=== PATIENT | male | born 1935 | race Caucasian/White ===

== ENCOUNTER → 2018-01-19 | Outpatient (CLI) | payer MEDICARE | LOC: NC 14:17 | PROVIDERS: ATTEND Family Medicine | DX: N39.0 Urinary tract infection, site not specified (principal) ==

== ENCOUNTER → 2018-01-20 | Outpatient (CLI) | payer MEDICARE | LOC: NC 08:32 → EDSTATUS 16:05 | PROVIDERS: ATTEND Family Medicine | DX: R79.89 Other specified abnormal findings of blood chemistry (principal); R68.89 Other general symptoms and signs; I10 Essential (primary) hypertension; E78.5 Hyperlipidemia, unspecified; R97.20 Elevated prostate specific antigen [PSA]; Z12.5 Encounter for screening for malignant neoplasm of prostate | CPT/HCPCS: 80053; 80061; 85025; G0103 ==

== ENCOUNTER → 2018-03-28 | Outpatient (CLI) | payer MEDICARE | LOC: GT 19:46 | PROVIDERS: ATTEND Family Medicine | DX: N39.0 Urinary tract infection, site not specified (principal) ==

== ENCOUNTER 2018-03-29 11:30 | Inpatient (IN) | payer MEDICARE ==
--- NOTE | 2018-03-29 11:32 | HP ---
SUPERVISING PHYSICIAN: Joaquin Mari M.D. CHIEF COMPLAINT: Right upper quadrant pain and difficulty urinating. HISTORY OF PRESENT ILLNESS: Mr. Rosario is an 82 year-old male patient of Dr. Mcelroy. He had just recently been placed into the care facility at [facility] over the weekend. He had started complaining of some difficulty urinating and was brought to the clinic by his son. The son had noted the patient has advanced dementia and is a very poor historian. I was called by Dianne and Mariola Chairez from the clinic about the patient. They had noted that the patient apparently had been treated over the weekend with Rocephin IM and [facility] an [facility] which is not clear at this point. He has had a prostate procedure a couple of years ago which the son thinks is a TURP for enlarged prostate. He started having decrease force of urine stream and some incontinence. In the clinic, urinalysis was completed that showed he had 3+ blood and some pyuria. He was also having some significant weakness and had had some unexplained weight loss of between 10 and 15 pounds over the last 2 weeks. The family had noted that the patient's appetite had decreased but he had not had any fever, coughing, nausea or vomiting. Due to the fact that the patient had ongoing weakness, Dianne Dominguez requested the patient be directly admitted for continuation of workup of possible sepsis secondary to urinary tract infection and severe dehydration. The patient initially was placed in observation. PAST MEDICAL HISTORY: 1. Carotid artery stenosis with a transient ischemic attack in 2007. 2. Hypertension. 3. Benign prostatic hypertrophy. 4. Alzheimer's disease. PAST SURGICAL HISTORY: 1. Transurethral resection of the prostate in 2016. CURRENT MEDICATIONS: 1. Flomax 0.4 mg daily. 2. Proscar 5 mg daily. 3. Ciprofloxacin 500 mg b.i.d. that was started at the clinic. ALLERGIES: NO KNOWN DRUG ALLERGIES. FAMILY HISTORY: Both mother and father are at advanced age due to natural causes. 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 He is . He has 6 children. Lives at [facility] now. He has never drank alcohol and does not use tobacco products. REVIEW OF SYSTEMS: CONSTITUTIONAL: Negative for any chills, fever, but positive for unexplained weight loss and worsening fatigue and malaise. HEENT: Negative for any headaches, nasal congestion, sore throat, ear aches. RESPIRATORY: Negative for shortness of breath, wheezing or cough or any chest congestion or hemoptysis. CARDIOVASCULAR: Negative for chest pains, palpitations, tachycardia, orthopnea or edema. GASTROINTESTINAL: Negative for abdominal pain, diarrhea, constipation. GENITOURINARY: Denies any actual dysuria, hematuria or polyuria, but notes that he does have decreased stream on urination. NEUROLOGIC: Negative for dizziness, headaches, paresthesias. Positive for increasing weakness. PHYSICAL EXAMINATION: VITAL SIGNS: Temperature 97.5, pulse 79, blood pressure 120/77, respirations 16, satting 98% on room air. Admission weight 58.3 kg. GENERAL: The patient is very lethargic, unkempt and frail, and looks dehydrated. HEENT: Tympanic membranes were clear bilaterally. Oropharynx was pink, notably dry and cracked. No lesions. NECK: Supple, non-tender. Full range of motion. CHEST: Lungs were clear to auscultation without any notable rhonchi, wheezing or rales. CARDIOVASCULAR: Regular rate and rhythm without appreciable murmurs, gallops, or rubs. ABDOMEN: Positive for right upper quadrant tenderness to palpation. No rebound tenderness. No peritoneal signs. No guarding. Bowel sounds were active. GENITOURINARY: Carrion catheter is in place with pinkish, yellowish urine. No costovertebral tenderness. NEUROLOGIC: Cranial nerves II-XII are grossly intact. Facial features are symmetrical. Extraocular movements are within normal limits. There is no notable nystagmus. He is alert and oriented to himself, his family but unsure of location and year. LYMPHATICS: No notable lymphadenopathy. INTEGUMENT: Skin is warm, dry and pink with no lesions or rashes noted. LABORATORY STUDIES: CBC showed a white count of 11,800, hemoglobin 12.1, hematocrit 37.2, platelet count 167,000. Differential did show a left shift. Chemistries showed sodium 134, normal potassium at 3.9, anion gap was low at 11.9, carbon dioxide normal at 6, BUN 55, creatinine 1.69, glucose 103, lactic acid 1.8, calcium was high at 11.2. AST and ALT are all elevated with AST of 137, ALT of 84 and alkaline phosphatase was 463. Albumin 2.8. Lipase and amylase were pending. RADIOLOGY: Abdominal ultrasound per radiology interpretation shows multiple small masses in the liver with differential consideration to include metastatic disease or multifocal hepatoma. There is note of small amount of upper abdominal ascites. There was upper abdominal adenopathy in the peripancreatic and upper hilar region. There was note of thickened wall of the gallbladder containing sludge and a prominent prostate. Common bile duct was noted to be within normal limits at 4.0 with the gallbladder showing wall thickness increased at 4.5. ASSESSMENT: 1. Possible cholecystitis with right upper quadrant pain and elevated liver functions with surgical consultation pending. 2. Urinary tract infection likely due to urinary retention with the patient having a history of benign prostatic hypertrophy. 3. Urinary retention with an enlarged prostate and a history of benign prostatic hypertrophy. 4. Moderate dehydration. 5. History of hypertension. 6. Alzheimer's disease with dementia. 7. Electrolyte imbalance to include hyponatremia. 8. Severe renal insufficiency, likely prerenal azotemia due to ongoing dehydration. 9. Hypobilirubinemia probably due to poor nutritional intake. 10. Unexplained weight loss in the last 2 weeks of 10 to 15 pounds with concerns for possible metastatic process, unknown source pending further radiographic studies and consultation with Dr. Lawrence. 11. History of transient ischemic attacks in 2007 with a history of carotid artery stenosis. 12. History of benign prostatic hypertrophy with a prostate procedure, probably a transurethral resection of the prostate, but no complete record for confirmation with some notable urinary retention but no hydronephrosis noted on recent ultrasound. PLAN: The patient is going to be admitted to the Medical/Surgical floor for treatment of dehydration, urinary tract infection and further evaluation of the findings of the liver and gallbladder. Given that he does have a leukocytosis and significant pain to the right upper quadrant and concerns for cholecystitis, I talked to Dr. Lawrence re: consultation and he agrees to see the patient tomorrow and recommends we go ahead and put the patient on antibiotics to include Levaquin and Flagyl. Will treat his current urinary tract infection with the Levaquin coverage and await culture results. Will go ahead and bolus a liter of normal saline and start him on normal saline with 20 of potassium at 150, and monitor his output closely. Given his significant weakness and severe dehydration and urinary retention, a Carrion will be placed. Will go ahead and do a CT of the chest and abdomen and pelvis to further rule out any other source of the masses noted in the liver on ultrasound. He will be on DVT prophylaxis as per protocol. Will start him on a regular diet. Will anticipate length of stay to be at least 2 to 3 days. Until the patient can transition to outpatient management will continue to monitor and treat as needed. #[id number] MTDD
[2018-03-29] MEDS ORDERED: SODIUM CHLORIDE 0.9% (FLUSH) 10 ML SYG IV PRN (12:40)
[2018-03-29] MEDS ORDERED: ONDANSETRON INJ 4 MG/2 ML VIAL IV PRN (12:40)
[2018-03-29] MEDS ORDERED: ACETAMINOPHEN 325 MG TAB PO PRN (12:40)
--- NOTE | 2018-03-29 15:39 | US ---
EXAM DESCRIPTION: Abdomen,Complete sonogram CLINICAL HISTORY: RUQ pain , Elevated LFT, Urinary retention COMPARISON: CT abdomen and pelvis October 17, 2014 TECHNIQUE: Complete abdominal ultrasound FINDINGS: Visualized portions of the pancreas are unremarkable. No peripancreatic fluid. Bowel gas obscures some areas. Normal caliber of the aorta. Extensive arteriosclerotic changes of the aortic intima. Normal appearance of the inferior vena cava. Prominent lymph nodes are seen in the peripancreatic region and around the aorta and inferior vena cava and liver hilum. Patient had CT of the abdomen October 17, 2014 and no adenopathy in the upper abdomen was seen at that time. Adenopathy in this area could be related to lymphoproliferative disorder, metastatic disease, or infectious/inflammatory process of the liver. Short axis dimension measurements of these enlarged nodes ranges from 1 to 1.4 cm. Liver parenchyma is course in texture. Multiple small masses consistent with metastatic disease or macronodular cirrhosis with multifocal hepatoma could have this appearance. Masses are in the 1-2.5 similar size range. There is mild undersurface irregularity. Small amount of free fluid around the liver is consistent with ascites. Normal appearance of hepatic veins and portal vein. Gallbladder appears normal with no intraluminal stones. Gallbladder wall thickness is increased measuring 4.5 mm. This can be seen with hepatocellular disease, hypoalbuminemia, abdominal ascites, cardiac or renal disease. Some images show sludge in the gallbladder but no shadowing stones are evident. Common bile duct is normal in caliber measuring 4.0 mm. The right kidney measures 12 cm in length. Normal to mildly increased renal cortical echogenicity. The renal cortical thickness appears normal. No solid-appearing right renal mass or shadowing stone. Large right renal cyst measures 7.3 cm. This was present on the previous study October 17, 2014. There is no hydronephrosis. Spleen is normal in size. No focal splenic lesion. Small amount of free fluid around the spleen is consistent with ascites. The left kidney measures 11.3 cm in length. Mildly increased renal cortical echogenicity. The renal cortical thickness appears normal. No left renal mass, shadowing stone or cyst. There is no hydronephrosis. In the pelvis, the urinary bladder appears thick-walled and the prostate is large with invagination of the bladder base. Prostate measures 4.1 cm in transverse dimension. IMPRESSION: Multiple small masses in the liver with differential considerations including metastatic disease or multifocal hepatoma. Small amount of upper abdominal ascites. Upper abdominal adenopathy in the peripancreatic and upper hilar region. Thick-walled gallbladder containing sludge. Prominent prostate. Electronically signed by: Jatin Holley MD 03/29/2018 3:38 PM [facility]
[2018-03-29] MEDS ORDERED: SODIUM CHLORIDE 0.9% 1000ML 1,000 ML IVS ONE (16:59)
[2018-03-29] MEDS ORDERED: levoFLOXacin 500MG IV 500 MG in PREMIX BAG 1 BAG IVPB SCH (17:00)
[2018-03-29] MEDS ORDERED: metroNIDAZOLE IV PREMIX 500MG 100 ML IVPB ONE ×2 (17:49→19:47)
[2018-03-29] MEDS: metroNIDAZOLE IV PREMIX 500MG 500 MG in PREMIX BAG 1 BAG IVPB SCH (18:01)
[2018-03-29] MEDS: KCL 20 MEQ/NS 1,000 ML IVS PRN (18:14)
[2018-03-29] MEDS: IV SET AND CAP CHANGE INJ INJ SCH (18:15)
[2018-03-29] MEDS ORDERED: levoFLOXacin 500MG IV 100 ML IVPB ONE (19:48)
--- NOTE | 2018-03-29 20:14 | CT ---
EXAM DESCRIPTION: Abdoment/Pelvis w/o Contrast CLINICAL HISTORY: f/u masses seen in liver US; unexplained wt loss COMPARISON: 10/17/2014. TECHNIQUE: Contiguous axial images of the abdomen and pelvis were obtained followed by reconstruction images. This exam was performed according to our departmental dose-optimization program, which includes automated exposure control, adjustment of the mA and/or kV according to patient size and/or use of iterative reconstruction technique. FINDINGS: Lack of IV contrast limits detail but there are new innumerable low-attenuation lesions in the liver worrisome for widespread metastases. Inflammatory involvement is also possible but less likely. There is perihepatic fluid. There are bilateral small pleural effusions, right greater than left. Dependent subsegmental atelectasis involves each lung. Masslike lesion at the right side of the right kidney is likely an exophytic cyst as it is unchanged compared to 10/17/2014 CT. The heart is mildly enlarged. There is diffuse lymphadenopathy of the mesentery. This may reflect widespread metastases. [id number] amount of free fluid is seen in the abdomen and pelvis. Carrion catheter is in the urinary bladder which is collapsed. Narrowing of the rectosigmoid is likely transient as I do not see evidence of obstruction proximally. There is atherosclerosis of the aorta. There is widespread para-aortic lymphadenopathy also worrisome for neoplastic etiology. There is mild thickening of the wall of the gallbladder with small amount of pericholecystic fluid. There is enlargement of the left adrenal gland concerning for metastatic disease. Contour of the aorta is irregular but it is not aneurysmally dilated. IMPRESSION: Widespread abnormalities are most worrisome for widespread metastases with extensive involvement of the liver, with widespread lymphadenopathy involving the mesentery and para-aortic lymph nodes. 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 See additional findings above. Follow-up is recommended. Electronically signed by: Stas Adkins 03/29/2018 8:13 PM [employer]
--- NOTE | 2018-03-29 20:18 | CT ---
PROCEDURE: Chest w/o Contrast CLINICAL HISTORY: 82 years Male f/u masses seen in liver US; unexplained wt loss COMPARISON: None. TECHNIQUE: Contiguous axial images obtained through the chest without IV contrast. Reformatted images obtained. This exam was performed according to our department optimization program which includes automated exposure control, adjustment of the mA and/or kv according to patient size and/or use of iterative reconstruction technique. FINDINGS: For detail below the diaphragm please see today's CT abdomen and pelvis report. There is a large heterogeneous right thyroid lobe mass measuring 30 x 26 mm. Sonography would offer greater detail of the remaining thyroid parenchyma. There is an ascending aortic aneurysm measuring 43 mm diameter. Bilateral small pleural effusions are again seen with dependent bilateral subsegmental atelectasis. There are mildly enlarged mediastinal lymph nodes. Mildly enlarged axillary lymph nodes are also seen bilaterally. Heart is mildly enlarged. Widespread marrow heterogeneity is nonspecific but neoplastic involvement is not excluded. No large consolidations are seen. No definite pulmonary metastases. IMPRESSION: Skeletal findings are concerning for metastases. No significant consolidations or definite pulmonary masses. Mildly enlarged lymph nodes. Bilateral pleural effusions. Cardiomegaly and ascending aortic aneurysm. Electronically signed by: Stas Adkins 03/29/2018 8:16 PM [employer] WORK[employer]
[2018-03-30] MEDS: metroNIDAZOLE IV PREMIX 500MG 500 MG in PREMIX BAG 1 BAG IVPB SCH ×3 (00:43→17:37)
[2018-03-30] MEDS ORDERED: KCL 20MEQ/0.45% NS 0 ML IVS ONE (00:48)
[2018-03-30] MEDS: KCL 20 MEQ/NS 1,000 ML IVS PRN ×2 (00:52→09:16)
[2018-03-30] MEDS ORDERED: metroNIDAZOLE IV PREMIX 500MG 100 ML IVPB ONE ×3 (08:20→19:19)
[2018-03-30] MEDS ORDERED: ENOXAPARIN SODIUM 40 MG/0.4 ML SYG SUBCU SCH (09:00)
--- NOTE | 2018-03-30 10:15 | CONS ---
DATE OF CONSULTATIONS 03/30/18 REFERRING PHYSICIAN: Hospitalist service, Frederick Ang and Joaquin Mari MD HISTORY OF PRESENT ILLNESS: The patient is an 82-year-old male who was admitted directly from the clinic yesterday with urinary retention. When he was examined here in the hospital, he was found to have tenderness in the right upper quadrant and a workup was begun. He denies history of fever or chills. He denies history of nausea. He denies history of change in his bowel habits. PAST MEDICAL HISTORY: 1. Carotid artery stenosis with transient ischemic attack in 2007. 2. Hypertension. 3. Benign prostatic hypertrophy. 4. Alzheimer's disease. PAST SURGICAL HISTORY: 1. He is believed to have had a transurethral resection of the prostate in 2016. CURRENT MEDICATIONS: 1. Flomax. 2. Proscar. 3. Cipro, which he was started on in the clinic. ALLERGIES: NO KNOWN DRUG ALLERGIES. FAMILY HISTORY: Unremarkable. 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 He is . He has six children. He never drank, does not use alcohol. REVIEW OF SYSTEMS: He specifically denies shortness of breath, chest pain, edema. He denies problems with swallowing or change in his bowel habits. PHYSICAL EXAMINATION: GENERAL: The patient is awake, alert, cooperative and appears somewhat cachetic. VITAL SIGNS: The patient is currently afebrile, normotensive. HEENT: Sclerae nonicteric. Mucous membranes moist. NECK: Without significant adenopathy. There is a thyroid mass palpable on the right side. CHEST: Equal breath sounds bilaterally. HEART: Regular rhythm. ABDOMEN: Soft, nondistended. There is tenderness in the right upper quadrant with some guarding. There is no referred tenderness. There is mild suprapubic tenderness. RECTAL: Deferred. EXTREMITIES: Without cyanosis, clubbing or edema. LABORATORY: Upon admission, white count was 11,000. White count today is 9.8. Hemoglobin was 12.1 and now 10.9. Platelet count 158 today, 81% neutrophils, essentially the same as yesterday. Chemistries revealed potassium 3.9 yesterday, 4.3 today. Creatinine is down from 1.69 to 1.34. Calcium is down from 11.2 to 10.3. Liver functions showed total bilirubin 2.3 yesterday and is 1.9 today. AST and ALT are both decreased, but still elevated, as is the alkaline phosphatase. LDH is elevated. Amylase and lipase within normal limits. PSA is 0.98. CT scan of the chest reveals a thyroid mass, 3 cm, bilateral pleural effusions and some mediastinal lymphadenopathy. CT scan of the abdomen reveals narrowing in the sigmoid colon, multiple mesenteric and periaortic lymph nodes that are enlarged, multiple small liver masses, some ascites mainly around the liver and a possible thickened gallbladder wall. The ultrasound reveals sludge with no stones and a normal duct. 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 GI is certainly likely although prostate and even thyroid are possibility. RECOMMENDATION: We will recommend obtaining urologic and GI consultation for possible upper and lower GI scopes tomorrow and also recommend ultrasound of the thyroid to more appropriately identify the right thyroid lesion. Would continue the antibiotics as he does also seem to have at least some acute cholecystitis either with or without cholelithiasis. #[id number] MTDD
[2018-03-30] MEDS: LOSARTAN POTASSIUM 25 MG TAB PO SCH (12:41)
[2018-03-30] MEDS: FINASTERIDE 5 MG TAB PO SCH (12:41)
[2018-03-30] MEDS: TAMSULOSIN 0.4 MG CAP PO SCH (12:41)
--- NOTE | 2018-03-30 12:48 | CT ---
EXAM DESCRIPTION: CT ABDOMEN AND PELVIS WITH CONTRAST CLINICAL HISTORY: f/u on CT w/o contrast 03/29/18 COMPARISON: March 29, 2018 TECHNIQUE: CT of the abdomen and pelvis are performed during IV bolus administration of IV contrast. FINDINGS: Small bilateral pleural effusions. Extensive hepatic metastatic disease with innumerable and confluent hypoenhancing lesions throughout the liver. The largest single lesion is an anterior segment right lobe measures 4.2 cm. Left adrenal lesion 1.7 cm. Retroperitoneal and mesenteric lymphadenopathy as described on the noncontrast study. The largest node is left periaortic mid abdomen 3.8 x 3.3 cm. Small volume ascites is present. Lytic bone lesions T10, T11. Careful evaluation of the bowel shows what I believe to be colon cancer in the proximal right colon/cecum best seen on axial images 47 through 51. 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 Believe this is secondary to colon cancer right colon. This exam was performed according to our departmental dose-optimization program, which includes automated exposure control, adjustment of the mA and/or kV according to patient size and/or use of iterative reconstruction technique. Electronically signed by: Jeremy Anthony MD 03/30/2018 12:47 PM [employer]
--- NOTE | 2018-03-30 13:50 | US ---
US THYROID CLINICAL STATEMENT: F/u right thyroid mass seen on CT 03/29/18.. Palpable bilaterally. No history of thyroid surgery or previous thyroid therapy. COMPARISON: CT scan of the chest 03/29/2018. FINDINGS: Size right thyroid lobe: 5.1 x 2.5 x 2.3 cm Size left thyroid lobe: 3.9 x 1.8 x 1.4 cm Size isthmus: 0.3 cm Estimated total number of nodules greater than or equal to 1 cm: 1. Heterogeneous left thyroid lobe with no dominant solid mass or cyst. No parenchymal edema or large calcifications. No abnormal vascularity. Nodule 1: Size: 3.2 x 2.8 x 1.8 cm Location: Right Mid Composition: solid or almost completely solid: 2 points Echogenicity: hypoechoic: 2 points Shape: wider than tall: 0 points Margins: lobulated/irregular: 2 points Echogenic foci: macrocalcifications: 1 point ACR Total Points: >/= 7; ACR TI-RADS risk category: TR5 - highly suspicious nodule. In the left lateral neck is a hypoechoic mass with smooth lobulated margins measuring 3.1 x 1.9 x1.9 cm. Minimal vascularity. Parallel orientation. Posterior enhancement features. A second mass with similar appearance measures 3.4 x 1.7 cm. Minimal vascularity on the periphery. More heterogeneity in this mass. Other smaller masses were not measured. No distinct cyst. No parenchymal edema or large calcifications. No overlying skin changes. IMPRESSION: 1. Nodule 1: ACR TI-RADS 2017 Category TR5. Recommend: Ultrasound-guided fine needle aspiration. Recommendations based upon [employer] Best [employer] recommendations and ACR TI-RADS 2017 guidelines. Please see below*. 2. At least 2 large hypoechoic masses in the soft tissues lateral to the left thyroid lobe which may represent lymphadenopathy. No parenchymal edema or cysts. No large calcifications. *ACR TI-RADS 2017 Recommendations: TR1: No FNA or follow up TR2: No FNA or follow up TR3: FNA if >/= 2.5 cm, follow up if 1.5 - 2.4 cm in 1, 3, and 5 years TR4: FNA if >/= 1.5 cm, follow up if 1.0 - 1.4 cm in 1, 2, 3, and 5 years TR5: FNA if >/= 1.0 cm, follow up if 0.5 - 0.9 cm every year for 5 years ACR TI-RADS recommends that no more than two nodules with the highest ACR TI-RADS total point should be biopsied and no more than four nodules should be followed. Electronically signed by: Stas Mays MD 03/30/2018 1:48 PM [facility]
[2018-03-30] MEDS ORDERED: PEG-ELECTROLYTE 4,000 ML BTTL PO ONE (16:02)
[2018-03-30] MEDS ORDERED: levoFLOXacin 250MG IV 50 ML IVPB ONE (16:10)
[2018-03-30] MEDS: levoFLOXacin 250MG IV 250 MG in PREMIX BAG 1 BAG IVPB SCH (16:35)
[2018-03-30] MEDS ORDERED: MORPHINE SULFATE INJ 10 MG/ML VIAL ONE (19:21)
[2018-03-30] MEDS: HYDROmorphone HCL INJ 2 MG/ML VIAL IV PRN (19:40)
[2018-03-30] MEDS: DONEPEZIL HCL 5 MG TAB PO SCH (20:02)
[2018-03-31] MEDS: metroNIDAZOLE IV PREMIX 500MG 500 MG in PREMIX BAG 1 BAG IVPB SCH ×3 (01:03→18:37)
[2018-03-31] MEDS: KCL 20 MEQ/NS 1,000 ML IVS PRN ×2 (01:03→18:41)
[2018-03-31] MEDS: HYDROmorphone HCL INJ 2 MG/ML VIAL IV PRN ×2 (06:04→18:38)
[2018-03-31] MEDS: ASPIRIN (ENTERIC COATED) 81 MG TAB PO SCH (08:02)
[2018-03-31] MEDS ORDERED: metroNIDAZOLE IV PREMIX 500MG 100 ML IVPB ONE ×3 (08:03→19:34)
[2018-03-31] MEDS: LOSARTAN POTASSIUM 25 MG TAB PO SCH (08:05)
--- NOTE | 2018-03-31 08:25 | PN ---
DATE: 03/30/18 SUPERVISING PHYSICIAN: Joaquin Mari MD SUBJECTIVE: The patient continues to have some pain in his left upper quadrant which is really noticeable when he rolls to the right side, however, laying flat he seems to be very comfortable, not having any complaints of any shortness of breath, nausea or vomiting or any diarrhea. I did talk at length with family, his daughter and [id number], in regards to the CT findings that were done yesterday and today and our request to have Dr. Cisneros do a colonoscopy given the findings of a possible cancer as noted on CT. The family is very agreeable to this and is working to secure consent to proceed forward. OBJECTIVE: VITAL SIGNS: Temperature 98, pulse 92, blood pressure 138/84, respirations 20, saturation 95% on room air. I&O: Positive balance of 615 with 2215 in and 1600 out. He has had one bowel movement with positive occult blood. Weight is 59.1 kg. GENERAL: The patient is alert, seems to be very comfortable and is somewhat esthetic and does winch with any movement but otherwise seems to be fairly comfortable and in no distress. CHEST: Lung sounds remain clear bilaterally. HEART: regular rate and rhythm. ABDOMEN: Soft, nondistended with notable tenderness continues throughout the right upper quadrant with some guarding. Bowel sounds are active. EXTREMITIES: Without any cyanosis, clubbing, or edema. NEUROLOGICAL: He is alert and oriented x2 to himself, family members and current location but otherwise he does not know the year but is very easily oriented and according to family members is at his near baseline mental status. LABORATORY: White count now has normalized to 9,800, hemoglobin 10.9, hematocrit 33.1. Platelet count 158,000, differential does continue to show a left shift. Chemistries show a sodium of 134, normal potassium at 4.3, anion gap 11, carbon dioxide 21. BUN is 46 which is improved from 54 on admission and his creatinine has improved up to 1.34. Calcium is down to 10.3, glucose 90. Liver functions are showing improvement with bilirubin now at 1.9, direct was 1.1 with indirect being 0.8. AST is down to 102, ALT at 65, alkaline phosphatase is down slightly to 401, alkaline phosphatase isoenzymes are pending. He had an LDH that was elevated at 334. Albumin is at 2.3, protein at 5.9. Amylase and lipase yesterday were normal. PSA was 0.98, TSH normal at 4.40. He had one stool occult blood that was positive. RADIOLOGY: Thyroid ultrasound and per Dr. Mays, there was note of a heterogenous left thyroid lobe with no dominant solid masses. Nodule 1 Size at 3.1 x 2.8 x 1.8 cm. Location: right mid composition was solid. Was hyperechoic and moderate and tall and lobulated to be irregular with microcalcifications. Please see that report for full details. 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 ASSESSMENT: 1. Probably metastatic malignancy, uncertain etiology, although CT is suggestive of possible colon cancer on the right[facility] consultation pending and colonoscopy scheduled for in the morning. 2. Right upper quadrant pain with elevated liver functions and multiple nodules noted of uncertain etiology. 3. Urinary tract infection secondary to urinary retention with the patient requiring Carrion placement with patient having a history of benign prostatic hypertrophy and having a noted enlarged prostate on CT scan. 4. Urinary retention with an enlarged prostate and a history of benign prostatic hypertrophy and a recent TURP within the last 2 years done in [place]. Family is unsure who the urologist was. 5. Moderate dehydration improving with fluids. 6. History of hypertension. 7. Alzheimer's disease with dementia. 8. Persistent hyponatremia showing to be stable. 9. Acute kidney injury, likely prerenal azotemia due to ongoing dehydration improving with IV fluids. 10. Hypobilirubinemia probably due to poor nutritional intake. 11. Unexplained weight loss in the last 2 weeks of 10 to 15 pounds probably due to metastatic process pending further consultations with GI and urology and continued surgical consultation. 12. History of transient ischemic attacks in 2007 with a history of carotid artery stenosis. PLAN: Consultations have been secured with both GI with Dr. Cisneros and Urology with Dr. Wagner on Thursday. He will have a colonoscopy performed by Dr. Cisneros tomorrow, consents have been signed and he will be prepped tonight per Dr. Cisneros's instructions and request. Will continue with fluids and antibiotics pending further consultation. Will await urine culture to further target antibiotic therapy and will await findings from colonoscopy to further determine plan of care. Certainly anticipate with current findings and probably findings tomorrow, that the patient will need to be referred to Oncology and at some point be placed on hospice. I have discussed with the family at length and they are very understanding of this and very appreciative of the efforts to get answers as to his source of the metastases and understand that the prognosis of the patient is very grim at this point. Until we can transition the patient back to [facility], will continue to monitor and treat as needed. #[id number] [facility]
[2018-03-31] MEDS: FINASTERIDE 5 MG TAB PO SCH (11:08)
[2018-03-31] MEDS: TAMSULOSIN 0.4 MG CAP PO SCH (11:08)
[2018-03-31] MEDS ORDERED: ELECTROLYTE-A 1,000 ML IVS ONE (11:16)
--- NOTE | 2018-03-31 11:51 | CONS ---
DATE OF CONSULTATION: 03/31/18 REFERRING PHYSICIAN: Frederick Ang NP, under the supervision of Joaquin Mari MD REASON FOR CONSULTATION: Abnormal imaging of the GI tract. HISTORY OF PRESENT ILLNESS: Mr. Rosario is an 82-year-old gentleman with a history of advanced Alzheimer's disease, carotid stenosis and hypertension who was admitted with urinary difficulties and urinary retention. On physical examination, he had some right upper quadrant tenderness. A CT can was performed which showed diffuse metastatic disease with bone metastasis and hepatic and nancy metastasis as well. There was also thickening in the right colon which was highly concerning for a colon malignancy. The patient has advanced dementia and is unable to provide a history. PAST MEDICAL HISTORY: 1. Carotid artery stenosis with transient ischemic attack in 2007. 2. Hypertension. 3. Benign prostatic hypertrophy. 4. Alzheimer's disease. PAST SURGICAL HISTORY: 1. Transurethral resection of the prostate in 2015. CURRENT MEDICATIONS: 1. Flomax. 2. Proscar. 3. Cipro. 4. Flagyl. ALLERGIES: NO KNOWN DRUG ALLERGIES. FAMILY HISTORY: No relevant GI disease. 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 He has no history of alcohol use and was a lifelong nonsmoker. REVIEW OF SYSTEMS: Unable to be performed due to the patient's mental status. PHYSICAL EXAMINATION: VITAL SIGNS: Temperature 97.5. Pulse 79. Blood pressure 120/77. Saturation 98% on room air. GENERAL: The patient appears lethargic and is very sleepy. HEENT: Anicteric. Mucous membranes are moist. CHEST: Clear to auscultation bilaterally. HEART: Regular rate and rhythm. ABDOMEN: Mild right upper quadrant tenderness, no rebound. EXTREMITIES: No lower extremity edema. LABORATORY: White blood cell count 11,000, currently 9.8. Hemoglobin 10.2, platelet count 158. Creatinine 1.3, bilirubin 1.9. ASSESSMENT: This is an 82-year-old gentleman with advanced Alzheimer's disease presenting for evaluation of abnormal imaging of the GI tract with also intraabdominal findings suggestive of possible metastatic colon cancer. PLAN: He has undergone colon preparation with GoLYTELY last night and this morning, we shall attempt a colonoscopy in order to identify any lesions in the right colon. #[id number] [facility]
--- NOTE | 2018-03-31 11:56 | OP ---
DATE OF PROCEDURE: 03/31/18 PREPROCEDURE DIAGNOSIS: 1. Abnormal imaging of the gastrointestinal tract suggesting a right colon malignancy. POSTPROCEDURE DIAGNOSIS: 1. Cecal mass. 2. Diverticulosis. PROCEDURE: 1. Colonoscopy with biopsy. SURGEON: Royal Cisneros MD. SEDATION: Monitored anesthesia care. ESTIMATED BLOOD LOSS: Less than 5 mL. PROCEDURE: Informed consent was obtained prior to sedation. The preprocedure cardiopulmonary assessment was satisfactory. The patient was brought to the Endoscopy Suite and placed in the left lateral decubitus position. The patient was then sedated by the anesthesia team. Digital rectal exam revealed a large, firm prostate. Perianal exam was normal. The tip of the Olympus colonoscope was inserted into the rectum and advanced under direct visualization to the cecum as identified by the presence of the appendiceal orifice and ileocecal valve. Preparation of the colon was adequate. Upon reaching the cecum, the endoscope was slowly withdrawn. In the cecum, near the ileocecal valve, there was a fairly large, roughly 5 cm, firm mass that had a malignant gross appearance. Biopsies were taken extensively with cold forceps for histology. The endoscopy was withdrawn to the sigmoid colon where there was some scattered diverticulosis. The endoscope was then withdrawn from the patient and the procedure terminated. RECOMMENDATION: 1. Return the patient to hospital josue. 2. Resume previous diet. 3. Continue present medications. 4. Followup pathology results. #[id number] [facility]TDD
[2018-03-31] MEDS ORDERED: levoFLOXacin 250MG IV 50 ML IVPB ONE (18:34)
[2018-03-31] MEDS: levoFLOXacin 250MG IV 250 MG in PREMIX BAG 1 BAG IVPB SCH (18:37)
[2018-03-31] MEDS: DONEPEZIL HCL 5 MG TAB PO SCH (20:39)
[2018-04-01] MEDS: metroNIDAZOLE IV PREMIX 500MG 500 MG in PREMIX BAG 1 BAG IVPB SCH ×3 (00:21→17:07)
[2018-04-01] MEDS: HYDROmorphone HCL INJ 2 MG/ML VIAL IV PRN (01:17)
[2018-04-01] MEDS: KCL 20 MEQ/NS 1,000 ML IVS PRN ×3 (04:33→22:29)
[2018-04-01] MEDS ORDERED: metroNIDAZOLE IV PREMIX 500MG 100 ML IVPB ONE ×2 (07:33→15:09)
--- NOTE | 2018-04-01 08:05 | CONS ---
DATE OF CONSULTATION: 03/31/18 HISTORY OF PRESENT ILLNESS: Mr. Rosario is an 82-year-old gentleman who was admitted to the hospital with declining health and generalized malaise. On admission to the hospital, he had some abdominal pain. He was catheterized and found to have 1 liter of urine in his bladder. Since then, he has undergone evaluation and was found to have metastatic tumor apparently from his colon. It looks like it is colon cancer with metastasis extensively to his liver. He also has extensive abdominal adenopathy. The patient has been followed in the past by Dr. Hernandez and as I understand he has had a previous resection of his prostate by Dr. Hernandez. PHYSICAL EXAMINATION: GENERAL: The patient's examination suggests a frail, elderly gentleman who is fairly lethargic, but does arouse. He seems appropriate. CHEST: He has normal respirations. ABDOMEN: Basically benign without distention or tenderness. The patient has an indwelling Carrion catheter draining clear to slightly bilious urine. He has uncircumcised phallus. No real edema noted. IMPRESSION: 1. Urinary retention. 2. Metastatic malignancy of the abdomen, presumed to be colon cancer. It appears to be fairly endstage at this point in time even with bony metastasis. RECOMMENDATION: I think the patient would be best served by leaving indwelling Carrion catheter at this time. One would think that hospice care would be warranted. If the patient's health does improve with treatment, though, one might consider a voiding trial a little later. I would wait until the patient is ambulatory before I would consider a voiding trial. Thank you allowing me to participate in his care. [facility][id number] [facility]
[2018-04-01] MEDS: LOSARTAN POTASSIUM 25 MG TAB PO SCH (08:20)
[2018-04-01] MEDS: FINASTERIDE 5 MG TAB PO SCH (08:20)
[2018-04-01] MEDS: TAMSULOSIN 0.4 MG CAP PO SCH (08:20)
--- NOTE | 2018-04-01 08:35 | PN ---
SUPERVISING PHYSICIAN: Joaquin Mari MD DATE: 03/31/18 SUBJECTIVE: The patient is lying in bed. His family is at his bedside. Dr. Lawrence discussed with the patient at length his poor prognosis as well as the finding on his colonoscopy. The patient stated he does feel better today than he has. He has had no nausea or vomiting. The plan was to await his biopsy results before making any decisions on his discharge plan. We would also watch the patient clinically as long as his appetite is okay and he is improving. OBJECTIVE: VITAL SIGNS: Temperature 97.6. Heart rate 98. Blood pressure 154/91. Respiratory rate 20. O2 saturation 94% on 2 liters nasal cannula. RESPIRATORY: Essentially clear to auscultation bilaterally. CARDIAC: Regular rate and rhythm. GASTROINTESTINAL: Abdomen is soft, diffusely tender, but more notable tenderness to the right upper quadrant. He does have some guarding. There is no rebound tenderness. EXTREMITIES: No cyanosis, clubbing or edema. NEUROLOGIC: Awake and oriented times two to person and place. LABORATORY: WBCs 7,100, hemoglobin 11, hematocrit 33.7. He has a normal differential. Electrolytes are basically within normal limits. Total bilirubin has gone up slightly to 2.1 with an AST of 82, alkaline phosphatase 445, serum total protein 5.8, albumin 2.2, globulin 3.9. All other labs and films have been reviewed via the EMR. Medical consultation notes from [place] show the patient to have a 5 cm mass at the cecum, possibly metastatic colon cancer and biopsies were obtained. ASSESSMENT: 1. Probably metastatic malignancy, uncertain etiology, although CT is suggestive of possible colon cancer on the right with GI consultation per Dr. Cisneros. Dr. Cisneros performed a colonoscopy today. He found an approximately 5 cm mass at the cecum which was biopsied and had a malignant gross appearance. 2. Right upper quadrant pain with elevated liver functions and multiple nodules noted of uncertain etiology. 3. Urinary tract infection secondary to urinary retention with the patient requiring Carrion placement with patient having a history of benign prostatic hypertrophy and having a noted enlarged prostate on CT scan. 4. Urinary retention with an enlarged prostate and a history of benign prostatic hypertrophy and a recent transurethral resection of the prostate within the last 2 years done in [place]. Family is unsure who the urologist was. 5. Moderate dehydration improving with fluids. 6. History of hypertension. 7. Alzheimer's disease with dementia. 8. Persistent hyponatremia, stable. 9. Acute kidney injury, likely prerenal azotemia due to ongoing dehydration, improving with IV fluids. 10. Hypobilirubinemia probably due to poor nutritional intake. 11. Unexplained weight loss in the last 2 weeks of 10 to 15 pounds probably due to metastatic process pending further consultations with GI and urology and continued surgical consultation. 12. History of transient ischemic attacks in 2007 with a history of carotid artery stenosis. PLAN: We will continue present supportive care. We will await the biopsies performed by Dr. Cisneros, GI specialist. Dr. Wagner also saw the patient in consultation and felt it would be best to leave the Carrion catheter at this time. Dr. Lawrence spoke to the family at length about hospice as well as possibilities of treatment. At this point, we will await the biopsy report, but this was a very poor prognosis and it may be beneficial for him to have hospice care. Dr. Lawrence is concerned that he may have to have his gallbladder removed just for patient comfort measures, but we will follow the biopsy reports and treat as appropriate. Dr. Lawrence has requested that we order CMP in the morning. We will continue to monitor the patient closely and follow as needed. [facility][id number] [facility]
[2018-04-01] MEDS: IV SET AND CAP CHANGE INJ INJ SCH (12:42)
[2018-04-01] MEDS ORDERED: levoFLOXacin 250MG IV 50 ML IVPB ONE (15:08)
[2018-04-01] MEDS: levoFLOXacin 250MG IV 250 MG in PREMIX BAG 1 BAG IVPB SCH (15:18)
--- NOTE | 2018-04-01 17:06 | PN ---
DATE: 04/01/18 SUPERVISING PHYSICIAN: Joaquin Mari MD SUBJECTIVE: The patient is lying in bed. He is very quiet. He has a difficult time answering questions but he can answer some simple, yes/no questions appropriately. He denies chest pain, nausea or increased abdominal pain. OBJECTIVE: VITAL SIGNS: Temperature T-max 24 hours is 99.7 axillary. Heart rate 97. Blood pressure 143/83 Respiratory rate 18. O2 saturation 93% on room air. RESPIRATORY: Somewhat diminished throughout but otherwise clear to auscultation. CARDIAC: Regular rate and rhythm. GASTROINTESTINAL: Abdomen is soft, slightly tender especially in the right upper quadrant. There is some grimacing with palpation. Bowel sounds are positive. EXTREMITIES: No cyanosis, clubbing or edema. NEUROLOGIC: Awake and alert. . LABORATORY: Electrolytes are basically within normal limits with the exception his carbon dioxide is slightly low at 20 and his bilirubin has improved to 1.9 with AST of 80, alkaline phosphatase 272. CEA is pending. All other labs and films have been reviewed via the EMR. ASSESSMENT: 1. Probably metastatic malignancy, uncertain etiology, although CT is suggestive of possible colon cancer on the right with GI consultation per Dr. Cisneros. Dr. Cisneros performed a colonoscopy today. He found an approximately 5 cm mass at the cecum which was biopsied and had a malignant gross appearance. 2. Right upper quadrant pain with elevated liver functions and multiple nodules noted of uncertain etiology. 3. Urinary tract infection secondary to urinary retention with the patient requiring Carrion placement with patient having a history of benign prostatic hypertrophy and having a noted enlarged prostate on CT scan. 4. Urinary retention with an enlarged prostate and a history of benign prostatic hypertrophy and a recent transurethral resection of the prostate within the last 2 years done in [place]. Family is unsure who the urologist was. 5. Moderate dehydration improving with fluids. 6. History of hypertension. 7. Alzheimer's disease with dementia. 8. Persistent hyponatremia, stable. 9. Acute kidney injury, likely prerenal azotemia due to ongoing dehydration, improving with IV fluids. 10. Hypobilirubinemia probably due to poor nutritional intake. 11. Unexplained weight loss in the last 2 weeks of 10 to 15 pounds probably due to metastatic process pending further consultations with GI and urology and continued surgical consultation. 12. History of transient ischemic attacks in 2007 with a history of carotid artery stenosis. PLAN: We will continue present supportive care. His grandson calls and he is waiting to come in to sign a Do Not Resuscitate. At this point we are awaiting the biopsy results from the colonoscopy and Dr. Lawrence has been in touch with Dr. Horn, the pathologist about those results. If the patient continues to improve on his antibiotics and has no further problems with his abdominal pain, most likely the family will send him to one of the local [facility] with [facility]. Until those results are available we will continue to monitor him closely. He does have a Carrion catheter and we will continue that as recommended by Dr. Wagner, urologist. I have ordered a CBC tomorrow and we will continue to monitor closely and follow as needed. Dr. Mari is the collaborating physician available for consultation. [facility][id number] [facility]
[2018-04-01] MEDS: DONEPEZIL HCL 5 MG TAB PO SCH (21:10)
[2018-04-02] MEDS ORDERED: metroNIDAZOLE IV PREMIX 500MG 100 ML IVPB ONE ×4 (00:31→19:49)
[2018-04-02] MEDS: metroNIDAZOLE IV PREMIX 500MG 500 MG in PREMIX BAG 1 BAG IVPB SCH ×3 (00:34→17:45)
[2018-04-02] MEDS: KCL 20 MEQ/NS 1,000 ML IVS PRN ×3 (06:24→23:42)
[2018-04-02] MEDS ORDERED: ASPIRIN (ENTERIC COATED) 81 MG TAB PO ONE (06:51)
[2018-04-02] MEDS: FINASTERIDE 5 MG TAB PO SCH (08:14)
[2018-04-02] MEDS: TAMSULOSIN 0.4 MG CAP PO SCH (08:14)
[2018-04-02] MEDS: LOSARTAN POTASSIUM 25 MG TAB PO SCH (08:14)
[2018-04-02] MEDS: ASPIRIN (ENTERIC COATED) 81 MG TAB PO SCH (08:14)
[2018-04-02] MEDS: HYDROmorphone HCL INJ 2 MG/ML VIAL IV PRN (10:07)
[2018-04-02] MEDS ORDERED: PROPOFOL 200 MG/20 ML VIAL IV ONE (13:26)
[2018-04-02] MEDS ORDERED: LIDOCAINE 1% 10 ML VIAL INJ ONE (13:26)
[2018-04-02] MEDS ORDERED: SODIUM CHLORIDE 0.9% 50 ML VIAL ONE (13:26)
[2018-04-02] MEDS ORDERED: levoFLOXacin 250MG IV 50 ML IVPB ONE (16:03)
[2018-04-02] MEDS: levoFLOXacin 250MG IV 250 MG in PREMIX BAG 1 BAG IVPB SCH (16:05)
[2018-04-02] MEDS: DONEPEZIL HCL 5 MG TAB PO SCH (20:48)
[2018-04-03] MEDS: metroNIDAZOLE IV PREMIX 500MG 500 MG in PREMIX BAG 1 BAG IVPB SCH ×3 (00:37→17:37)
[2018-04-03] MEDS: HYDROmorphone HCL INJ 2 MG/ML VIAL IV PRN ×3 (03:53→23:19)
[2018-04-03] MEDS: KCL 20 MEQ/NS 1,000 ML IVS PRN (07:48)
[2018-04-03] MEDS ORDERED: metroNIDAZOLE IV PREMIX 500MG 100 ML IVPB ONE ×3 (08:07→19:57)
[2018-04-03] MEDS ORDERED: ASPIRIN (ENTERIC COATED) 81 MG TAB PO ONE (08:07)
[2018-04-03] MEDS: FINASTERIDE 5 MG TAB PO SCH (08:54)
[2018-04-03] MEDS: TAMSULOSIN 0.4 MG CAP PO SCH (08:54)
[2018-04-03] MEDS: LOSARTAN POTASSIUM 25 MG TAB PO SCH (08:54)
[2018-04-03] MEDS: ASPIRIN (ENTERIC COATED) 81 MG TAB PO SCH (08:54)
--- NOTE | 2018-04-03 10:13 | PN ---
DATE: 04/02/18 SUPERVISING PHYSICIAN: Bebeto Bowman MD SUBJECTIVE: The patient is lying quietly in bed. He has no complaints of pain. His family is at the bedside and Dr. Lawrence spoke with them at length about hospice care as well as his prognosis and treatment. The patient's family want him to be as comfortable as possible and do what we need and at some point they will utilize [facility]. Otherwise, the nurses report no changes or problems with Mr. Rosario. OBJECTIVE: VITAL SIGNS: Temperature is 98.1. Heart rate 97. Blood pressure 125/78. Respiratory rate 18. O2 saturation 92% on room air. RESPIRATORY: Diminished at the basis, otherwise clear to auscultation. CARDIAC: Regular rate and rhythm. GASTROINTESTINAL: Abdomen is soft, mildly tender in the right upper quadrant area but there is no guarding or rebound tenderness and it has improved since yesterday. NEUROLOGIC: Awake and alert. .He is somewhat confused. He answers a few simple yes/no questions. LABORATORY: WBC 10.5 with hemoglobin 11.6 and hematocrit 35.3. He does have a left shift on differential at 84.6%. Electrolytes are basically within normal limits, his creatinine remains stable at 1.18. BUN is slightly elevated at 34. Bilirubin is 2.6 with AST of 83, alkaline phosphatase 392. Serum total protein low at 5.3, albumin 2.0. CEA is 2.1. All other labs and films have been reviewed via the EMR. ASSESSMENT: 1. Probably metastatic malignancy, uncertain etiology, although CT is suggestive of possible colon cancer on the right with GI consultation per Dr. Cisneros. Dr. Cisneros performed a colonoscopy today. He found an approximately 5 cm mass at the cecum which was biopsied and had a malignant gross appearance. 2. Right upper quadrant pain with elevated liver functions and multiple nodules noted of uncertain etiology. 3. Urinary tract infection secondary to urinary retention with the patient requiring Carrion placement with patient having a history of benign prostatic hypertrophy and having a noted enlarged prostate on CT scan. 4. Urinary retention with an enlarged prostate and a history of benign prostatic hypertrophy and a recent transurethral resection of the prostate within the last 2 years done in [place]. Family is unsure who the urologist was. 5. Moderate dehydration improving with fluids. 6. History of hypertension. 7. Alzheimer's disease with dementia. 8. Persistent hyponatremia, stable. 9. Acute kidney injury, likely prerenal azotemia due to ongoing dehydration, improving with IV fluids. 10. Hypobilirubinemia probably due to poor nutritional intake. 11. Unexplained weight loss in the last 2 weeks of 10 to 15 pounds probably due to metastatic process pending further consultations with GI and urology and continued surgical consultation. 12. History of transient ischemic attacks in 2007 with a history of carotid artery stenosis. PLAN: We will continue present supportive care. We will follow the recommendations of , general surgeon, in regard to his gallbladder. Dr. Lawrence would like to monitor him closely over the next few days. At some point we will call in [facility]. The patient is a Do Not Resuscitate. We will continue present supportive care including his antibiotics. I will order lab for in the morning. If his temperature is either equal to or more than 100.5, he is to get blood cultures or call me. Otherwise we will continue to monitor him closely and follow as needed.. #[id number] [facility]
[2018-04-03] MEDS ORDERED: MAGNESIUM SULFATE PREMIX 2GM 2 GM in PREMIX BAG 1 BAG IVPB ONE (11:24)
[2018-04-03] MEDS ORDERED: FUROSEMIDE INJ 40 MG/4 ML VIAL IV ONE (11:45)
[2018-04-03] MEDS ORDERED: MAGNESIUM SULFATE PREMIX 2GM 50 ML IVPB ONE (13:10)
[2018-04-03] MEDS: DEX 5% W/NACL 0.22% 1000ML 1,000 ML IVS PRN (13:15)
--- NOTE | 2018-04-03 13:44 | RAD ---
EXAM DESCRIPTION: Chest,1 View CLINICAL HISTORY: SOB COMPARISON: None. FINDINGS: Cardiac silhouette is within normal limits. There is atelectasis at each lung base with consolidation at the right lung base. IMPRESSION: Right lung base consolidation. Electronically signed by: Stas Adkins 04/03/2018 1:43 PM [facility]
[2018-04-03] MEDS ORDERED: levoFLOXacin 250MG IV 50 ML IVPB ONE (16:13)
[2018-04-03] MEDS: levoFLOXacin 250MG IV 250 MG in PREMIX BAG 1 BAG IVPB SCH (16:16)
[2018-04-03] MEDS: DONEPEZIL HCL 5 MG TAB PO SCH (20:41)
[2018-04-04] MEDS: metroNIDAZOLE IV PREMIX 500MG 500 MG in PREMIX BAG 1 BAG IVPB SCH ×3 (01:02→16:25)
[2018-04-04] MEDS: DEX 5% W/NACL 0.22% 1000ML 1,000 ML IVS PRN ×2 (02:45→18:22)
--- NOTE | 2018-04-04 07:42 | RAD ---
EXAM: Single view chest. INDICATION: Right lower lobe pneumonia. COMPARISON: Chest x-ray: 04/03/2018. FINDINGS: Again noted is a right lower lobe airspace opacity with probable right pleural effusion. The heart size is stable. There is no pneumothorax. The bones are unchanged. IMPRESSION: No significant change compared to the prior exam. Grossly stable right basilar airspace opacity Electronically signed by: Ozzy Washington MD 04/04/2018 7:40 AM [employer] Workstation: [id number]
[2018-04-04] MEDS ORDERED: ASPIRIN (ENTERIC COATED) 81 MG TAB PO ONE (07:52)
[2018-04-04] MEDS ORDERED: metroNIDAZOLE IV PREMIX 500MG 100 ML IVPB ONE ×3 (07:53→19:25)
[2018-04-04] MEDS ORDERED: levoFLOXacin 250MG IV 50 ML IVPB ONE (07:53)
[2018-04-04] MEDS: FINASTERIDE 5 MG TAB PO SCH (08:18)
[2018-04-04] MEDS: ASPIRIN (ENTERIC COATED) 81 MG TAB PO SCH (08:18)
[2018-04-04] MEDS: LOSARTAN POTASSIUM 25 MG TAB PO SCH (08:18)
[2018-04-04] MEDS: TAMSULOSIN 0.4 MG CAP PO SCH (08:18)
[2018-04-04] MEDS: HYDROmorphone HCL INJ 2 MG/ML VIAL IV PRN ×3 (09:41→22:20)
--- NOTE | 2018-04-04 09:59 | PN ---
SUPERVISING PHYSICIAN: CORY CISNEROS MD DATE: 04/03/18 SUBJECTIVE: The patient is much more confused today. He still grimaces every time you touch him on the right side and his abdomen seems to be a little bit more distended today. Certainly, his weight is up. It is noted that his white count has gone up and based off his clinical assessment and labs, it looks like he may be developing a right-sided pneumonia. Given that he has been on Levaquin since admission, certainly would want to go to a different coverage of antibiotic for more aggressive treatment with concerns for hospital acquired pneumonia. I discussed with family members present at that time and they both voiced to wait until his estate planning attorney, his son, was available and they felt like he would not want to continue with more aggressive management and in fact, probably go to care and comfort on hospice care. Will again wait to talk to his son and make further arrangements for treatment at that time. He does remain afebrile and appears to be comfortable and in no acute distress. OBJECTIVE: VITAL SIGNS: Temperature 97.9, pulse 110, blood pressure 156/91, respirations 18, saturation 94% on room air. I&O: Positive balance of 2683 with 3708 in and 1025 out. Review of his total intake and output since admission shows that he is approximately 2600 positive balance. He has had several bowel movements since admission. His weight continues to increase, is up to 69.9 today. GENERAL: The patient is resting comfortably and appears to be in no acute distress. He is alert but obviously confused. CHEST: Lung sounds are much more diminished than previous days with some notable rhonchi heard on the right lower lobe, more so; present on the lateral posterior aspect. HEART: Tachycardiac on the monitor but regular rate. ABDOMEN: Distended but soft with notable tenderness on palpation of the right upper quadrant. EXTREMITIES: Without any cyanosis, clubbing, or edema. NEUROLOGICAL: He is alert but confused, in fact, he told me he had to get ready for work and take a shower. The family notes in their assessment, that his baseline mental status has changed and he has become more confused than the previous day. He still remains pleasant and non-combative. There is no notable neurological deficit. He moves all extremities ad carlos and follows simple commands. LABORATORY: White count is showing elevation at 13,700 with a left shift. Hemoglobin 10.9, hematocrit 13.3 with platelet count at 207,000. Chemistries show an elevated chloride at 117 with a low C02 of 17, sodium and potassium remain normal. Anion gap shows to be low at 10.8 and albumin at 2.1, creatinine 1.22 with BUN 38. Glucose 83. Repeat lactic acid is 1.8. Calcium 10.4 and corrected for the albumin approximately 11.9. Magnesium low at 1.7. Bilirubin remains elevated at 2.4. AST showing some improvement, down to 77. ALT remains normal at 41, alkaline phosphatase 322. Ammonia level is 18. CEA 2.1 which is within normal limits. Repeat urinalysis today shows a large amount of blood on dipstick with microscopic showing greater than 50 RBC and 1+ bacteria with 1+ uric acid. 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 Please see that report for full details. MICROBIOLOGY: Blood cultures are pending. RADIOLOGY: Chest x-ray today per radiology interpretation shows atelectasis at each lung base with a consolidation at the right lung base. ASSESSMENT: 1. 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 2. Persistent right upper quadrant pain with elevated liver functions with concerns for developing cholecystitis. 3. Urinary tract infection probably due to urinary retention but will culture results showing less than 10,000 urogenital srejio present with the patient having on Levaquin since admission. 4. Right lower lobe pneumonia probably hospital acquired. 5. Leukocytosis probably due to developing pneumonia in the right lower lobe. 6. Normocytic normochromic anemia probably due to colon cancer. 7. Metabolic acidosis with hyperchloremia, low anion gap probably due to some diarrhea possibly secondary to volume overload with normal saline. 8. Alzheimer's with dementia showing some worsening mental status, probably due to hospitalization underlying infectious process. 9. Hypobilirubinemia due to poor nutritional intake in a patient with metastatic carcinoma of the colon. 10. History of transient ischemic attacks in 2007 with a history of carotid artery stenosis. PLAN: As noted above, I will discuss with Jean-Pierre, his sone an POA, the need to escalate antibiotic therapy based off current clinical findings today with concerns for developing hospital acquired pneumonia as well as concerns for possible developing sepsis with bacteremia. Given his prognosis with the metastatic colon cancer, family is in discussion as to continuing with more aggressive care or simply go to care and comfort measures with hospice. Should the family continue to want more aggressive care, certainly we will look at changing the antibiotics for additional coverage, likely with meropenem and vancomycin. If the family wishes to do hospice, they are looking to be [facility], will contact hospice and likely discharge the patient either later today or tomorrow to continue with hospice care at [facility]. Until the decision is made, we will continue with current plan of care with Brandi and Yas and given that he has had a significant weight gain and appears to be a little bit fluid overloaded, I will change his IV fluids to D5 quarter normal saline with 20 of potassium and will go ahead and give him 40 of Lasix to help with fluid balance. He does appear to be developing some ascites which certainly could be resulting in the weight gain and most likely will be difficult to shift fluid balance with just Lasix. Again, we will await the family's decision on continued care plan. Until then, we will continue to monitor and treat as needed. #[id number] [facility]
[2018-04-04] MEDS: IV SET AND CAP CHANGE INJ INJ SCH (11:51)
[2018-04-04] MEDS ORDERED: FUROSEMIDE INJ 40 MG/4 ML VIAL IV ONE (12:35)
[2018-04-04] MEDS ORDERED: SPIRONOLACTONE 25 MG TAB PO ONE (12:35)
[2018-04-04] MEDS: levoFLOXacin 250MG IV 250 MG in PREMIX BAG 1 BAG IVPB SCH (15:07)
[2018-04-04] MEDS: SPIRONOLACTONE 25 MG TAB PO SCH (16:25)
--- NOTE | 2018-04-04 17:24 | PN ---
SUPERVISING PHYSICIAN: CORY CISNEROS MD DATE: 04/04/18 SUBJECTIVE: The patient today seems a little bit more alert and not as confused. He continues to show signs of pain, grimacing when he moves and seems to be much more tender today than previous days. I discussed with family that his labs were fairly stable but he continues to have some increase in weight which is more likely ascites but we will work to diurese him with Spirolactone and Lasix. The patient has been afebrile. OBJECTIVE: VITAL SIGNS: Temperature 98.4, pulse 90, blood pressure 137/89, respirations 18, saturation 92% on room air. I&O: Negative balance of 135 with 2440 in and 2575 out. Weight is at 71.0 kg. GENERAL: The patient is resting comfortably, he is pleasantly confused but alert. He appears to be in no acute distress until he tries to move and then he grimaces. CHEST: Lung sounds are diminished just toward the bases, otherwise clear. HEART: Regular rate and rhythm. ABDOMEN: Soft with continued tenderness to the right upper quadrant on palpation. Much more distended today with bowel sounds present. EXTREMITIES: Without any cyanosis, clubbing, or edema. NEUROLOGICAL: He is alert but confused to location, time and place but appears to be close to baseline levels since admission. LABORATORY: White count improved slightly, down to 12,000. Hemoglobin 10.5, hematocrit 30.0 and stable with platelet count at 176,000. Differential today shows a continued left shift with bandemia with 4% bands. Chemistries show a slight improvement with stable sodium and potassium, chloride is down to 113 as well as carbon dioxide is down to 16. Creatinine is 1.26, anion gap 11 with carbon dioxide again is low at 16. Bilirubin remains elevated at 2.2 which is slightly down from previous days with direct bilirubin at 1.3 and 0.9 for indirect. There was occult stool blood that was positive. RADIOLOGY: Chest x-ray per radiology interpretation shows no significant change compared to prior exam with grossly stable right basilar air-space opacity. ASSESSMENT: 1. Colon mass with poorly differentiated adenocarcinoma as noted on pathology with metastases noted on recent CT scan to the liver including thyroid and the noted bone lesion.. 2. Right upper quadrant pain which is persistent with elevated liver functions with concerns for ongoing cholecystitis followed by Dr. Melinda. 3. Urinary tract infection with final urine culture showing less than 10,000 urogenital serjio with the patient showing to be on Levaquin and Carrion in place. 4. Right lower lobe pneumonia possibly hospital acquired but showing to be stable with the patient showing some improvement clinically. 5. Leukocytosis with slight return to baseline due to questionable pneumonia in the right lower lobe. 6. Normocytic normochromic anemia probably due to colon cancer and chronic illness. 7. Alzheimer's with dementia with a decline form base line levels due to on going illness 8. Continued metabolic acidosis with hypochloremia and low anion gap probably showing some slight improvement likely due to diarrhea and some IV therapy with normal saline responding well to D5 quarter normal saline at a lower rate. 9. Hypobilirubinemia probably due to poor nutritional intake in a patient with metastatic carcinoma of the colon. 10. History of transient ischemic attacks in 2007 with a history of carotid artery stenosis. PLAN: After discussion with Dr. Lawrence, current plan at this point is to repeat ultrasound in the morning as well as lab. Dr. Lawrence is anticipating probably having to do a percutaneous drain of the gallbladder due to the patient's symptomatology. Will go ahead and diurese him fairly aggressive today to hopefully remove some of his ascites with Spironolactone and Lasix both. He continues on antibiotic coverage with Levaquin and Flagyl. The patient's family has been discussing current plan as well as future care plan and hopefully once the ultrasound tomorrow and possible drainage is completed, they will discuss hospice and discharging him to [facility]. Until the, we will continue to monitor and treat as needed. [facility][id number] [facility]
[2018-04-04] MEDS: DONEPEZIL HCL 5 MG TAB PO SCH (20:37)
[2018-04-05] MEDS: metroNIDAZOLE IV PREMIX 500MG 500 MG in PREMIX BAG 1 BAG IVPB SCH ×3 (00:38→16:53)
[2018-04-05] MEDS ORDERED: metroNIDAZOLE IV PREMIX 500MG 100 ML IVPB ONE ×3 (07:28→19:09)
[2018-04-05] MEDS ORDERED: ASPIRIN (ENTERIC COATED) 81 MG TAB PO ONE (07:28)
[2018-04-05] MEDS: HYDROmorphone HCL INJ 2 MG/ML VIAL IV PRN (07:33)
[2018-04-05] MEDS: SPIRONOLACTONE 25 MG TAB PO SCH ×2 (08:35→17:51)
[2018-04-05] MEDS: LOSARTAN POTASSIUM 25 MG TAB PO SCH (08:35)
[2018-04-05] MEDS: FINASTERIDE 5 MG TAB PO SCH (08:36)
[2018-04-05] MEDS: TAMSULOSIN 0.4 MG CAP PO SCH (08:37)
[2018-04-05] MEDS: ASPIRIN (ENTERIC COATED) 81 MG TAB PO SCH (08:37)
[2018-04-05] MEDS: DEX 5% W/NACL 0.22% 1000ML 1,000 ML IVS PRN ×2 (09:36→23:27)
--- NOTE | 2018-04-05 09:39 | US ---
EXAM DESCRIPTION: Abdomen,Limited: ULTRASOUND. CLINICAL HISTORY: fu gallbladder and ascites. COMPARISON: Ultrasound abdomen complete 03/29/2018. TECHNIQUE: Transabdominal scannin-dimensional and Doppler modes. FINDINGS: Gallbladder: Clearly filled with hypoechoic sludge. Moderate fluid around the gallbladder. Wall thickening 3.4 mm Non-tender with transducer pressure. Common bile duct: caliber 3.1 mm within normal limits. Liver: Heterogeneous echogenicity; multiple masses again noted. Contour liver capsule minimally irregular where subcapsular masses are located. Significant amount of fluid around the liver. Intrahepatic biliary ducts normal caliber. Doppler hepatopedal flow and normal caliber portal vein.. Long axis right lobe 20.1 cm. Right pleural effusion also. Pancreas: normal size and echogenicity. Duct not seen. Proximal abdominal aorta: Normal caliber from the proximal segment to the distal bifurcation. Atherosclerotic irregularity and thickening of the intima. With calcification. IVC: visualized and normal caliber. Right kidney: long axis measures 11.1 cm. Minimal cortical thinning and increased echogenicity, stable since the prior study. 7.2 cm cyst with lobular margins, possible peripheral calcification and septation. Stable since the prior study. No hydronephrosis. Fluid in Morison's pouch. Moderate amount of fluid in both lower quadrants. Urinary bladder catheter in collapsed bladder with balloon inflated. Left pleural effusion also noted. IMPRESSION: 1. Moderate ascites in all quadrants of the abdomen. Bilateral pleural effusions. 2. Gallbladder completely filled with more sludge versus inflammatory/infectious material since the prior study. Wall thickening stable since the prior study. Common bile duct normal caliber. 3. Enlarged liver with multiple masses stable since the prior study. 4. Visualized pancreas, abdominal aorta, and right kidney with septated cyst stable since the prior study. Electronically signed by: Stas Mays MD 04/05/2018 9:38 AM ACCIDENT EXAMINER
--- NOTE | 2018-04-05 10:14 | PN ---
SUPERVISING PHYSICIAN: Elisa Velasquez MD DATE: 04/05/18 SUBJECTIVE: The patient is resting comfortably and appears to be in no distress. He has had no reported complications overnight. He has been NPO. He has required some pain management as his pain seems to be increasing, but he has remained afebrile. He did show a fairly good response with aggressive diuresis yesterday with Spironolactone and Lasix, although his weight has not change significantly. OBJECTIVE: VITAL SIGNS: Temperature 98.2. Pulse 100 to 120. Blood pressure 111/74. Respirations 81. Saturation 90% to 93% on room air at rest. I&Os show positive balance today with 2100 in, 1275 out. Weight 71.1 kg. GENERAL: The patient is resting, but easily awoken. He is mildly confused, but has not changed significantly from admission. He is alert once awake. CHEST: Lung sounds are fairly clear throughout, again diminished just toward the bases, more so on the right than the left. No obvious rhonchi or wheezing noted. ABDOMEN: Distended, but soft with continued right upper quadrant pain on palpation. No guarding or rebound tenderness. EXTREMITIES: No edema. NEUROLOGICAL: He is alert but fairly confused, which is his baseline mental status since admission. He is moving all extremities ad carlos with no obvious neuro motor deficits. LABORATORY: White count 12,000, hemoglobin 11.1, hematocrit 34.1, platelet count 165,000. Differential does show a left shift, but no bands today. Coag studies show PT 14.2, PTT 32.3. Chemistries show sodium 135, potassium 3.9. Chloride now is normalized at 109. Carbon dioxide is up from 16 to 18. BUN is slightly elevated from previous days at 41 and creatinine is up from 1.26 to 1.48. Glucose 90, calcium elevated at 10.8 with total bilirubin 2.7. AST is up once again at 135, ALT normal at 45 with alkaline phosphatase continued to be elevated at 313. Other liver enzymes continue to be pending. MICROBIOLOGY: Preliminary urine culture results show gram negative april. Blood cultures remain negative at 24 hours. RADIOLOGY: Ultrasound of the complete abdomen is pending. ASSESSMENT: 1. Colon mass with poorly path report showing differentiated adenocarcinoma with metastases noted on recent CT scan to the liver, thyroid and bone. 2. Right upper quadrant pain, persistent with elevated liver functions with concerns for ongoing worsening cholecystitis, followed by Dr. Lawrence. 3. Urinary tract infection with final urine culture showing less than 10,000 urogenital serjio with the patient continuing to be on Levaquin and with indwelling Carrion catheter. 4. Right lower lobe pneumonia, possibly hospital acquired, but stable with the patient showing some improvement compared to previous days. 5. Leukocytosis, stable, probably due to both cholecystitis and developing pneumonia. 6. Normocytic/normochromic anemia, due to chronic illness and colon cancer. 7. Alzheimer's with dementia, showing some slight worsening of mental status since admission due to ongoing infectious process exacerbated by some dehydration initially. 8. Resolving metabolic acidosis with now normal chloride level and anion gap with the patient continuing to be on D5 quarter normal saline. 9. Hypobilirubinemia, probably due to poor nutritional intake in a patient with metastatic carcinoma of the colon. 10. History of previous transient ischemic attacks in 2007 with a history of carotid artery stenosis. PLAN: I discussed with Dr. Lawrence that we will await ultrasound findings and anticipate possible need of percutaneous drain to drain the gallbladder. If that is the case, we certainly will get cultures. Once that is completed, Dr. Lawrence will discuss with the family hospice admission in the near future as the patient has a poor prognosis and is not a surgical candidate. Until discharge, we will continue to monitor and treat as needed. [facility][id number] [facility]
[2018-04-05] MEDS ORDERED: FUROSEMIDE INJ 40 MG/4 ML VIAL IV SCH (14:30)
[2018-04-05] MEDS ORDERED: ALBUMIN 50 ML IVPB ONE (15:29)
[2018-04-05] MEDS ORDERED: levoFLOXacin 250MG IV 50 ML IVPB ONE (15:30)
[2018-04-05] MEDS: ALBUMIN 25 GM in PREMIX BOTTLE 2 BOTTLE IVPB SCH ×2 (15:46→23:18)
[2018-04-05] MEDS: levoFLOXacin 250MG IV 250 MG in PREMIX BAG 1 BAG IVPB SCH (15:55)
[2018-04-05] MEDS: FUROSEMIDE INJ 40 MG/4 ML VIAL IV SCH (17:51)
[2018-04-05] MEDS ORDERED: ALBUMIN 100 ML IVPB ONE (19:26)
[2018-04-05] MEDS: DONEPEZIL HCL 5 MG TAB PO SCH (20:36)
[2018-04-06] MEDS: metroNIDAZOLE IV PREMIX 500MG 500 MG in PREMIX BAG 1 BAG IVPB SCH ×3 (01:18→17:03)
[2018-04-06] MEDS: FUROSEMIDE INJ 40 MG/4 ML VIAL IV SCH (01:19)
[2018-04-06] MEDS ORDERED: ASPIRIN (ENTERIC COATED) 81 MG TAB PO ONE (07:10)
[2018-04-06] MEDS ORDERED: metroNIDAZOLE IV PREMIX 500MG 100 ML IVPB ONE ×3 (07:10→19:01)
[2018-04-06] MEDS: HYDROmorphone HCL INJ 2 MG/ML VIAL IV PRN ×2 (07:40→12:05)
[2018-04-06] MEDS: FINASTERIDE 5 MG TAB PO SCH (08:57)
[2018-04-06] MEDS: ASPIRIN (ENTERIC COATED) 81 MG TAB PO SCH (08:57)
[2018-04-06] MEDS: TAMSULOSIN 0.4 MG CAP PO SCH (08:57)
[2018-04-06] MEDS: LOSARTAN POTASSIUM 25 MG TAB PO SCH (08:57)
--- NOTE | 2018-04-06 10:08 | RAD ---
EXAM DESCRIPTION: Chest,1 View CLINICAL HISTORY: rll pneumonia COMPARISON: 04 April 2018 TECHNIQUE: AP portable chest FINDINGS: Cardiomegaly is evident. Bilateral pleural effusions are observed. Pulmonary vascular congestion is seen. A calcific mass is observed in the right thyroid. IMPRESSION: Bilateral pleural effusions and cardiomegaly are observed suggesting congestive heart failure. The exam also reveals a calcific mass the right thyroid lobe. Electronically signed by: Baldemar Guan MD 04/06/2018 10:06 AM MILITARY TECHNOLOGY SPECIALIST
[2018-04-06] MEDS: DEX 5% W/NACL 0.22% 1000ML 1,000 ML IVS PRN (13:24)
[2018-04-06] MEDS ORDERED: levoFLOXacin 250MG IV 50 ML IVPB ONE (15:41)
[2018-04-06] MEDS: levoFLOXacin 250MG IV 250 MG in PREMIX BAG 1 BAG IVPB SCH (15:42)
[2018-04-06] MEDS: DONEPEZIL HCL 5 MG TAB PO SCH (20:39)
--- NOTE | 2018-04-06 21:37 | PN ---
DATE: 04/06/18 SUPERVISING PHYSICIAN: Royal Velasquez M.D. SUBJECTIVE: The patient continues to be confused. His labs continue to decline, specifically his liver function. Dr. Lawrence has discussed today with Jean-Pierre, their POA, plans in regards to discharging the patient and probably not doing any surgical intervention or even percutaneous drain in regards to the gallbladder. The patient has been afebrile. He has not been responding very much to diuresis and is starting to show some third spacing. OBJECTIVE: VITAL SIGNS: Temperature 98.4, pulse 82, blood pressure 116/63, respirations 21, satting 89 to 90% on room air. I's and O's show a negative balance of 570 with 1580 in, 2150 out. Weight is 72.1 kg. GENERAL: The patient is resting, appears to be comfortable. He is mildly confused but awakens, but is not making any directed conversation. He basically just mumbles. CHEST: Lung sounds remain fairly clear but continue to be diminished towards the bases. No obvious rhonchi, wheezing or rales are noted. ABDOMEN: Continues to be distended. Remains soft with less right upper quadrant pain today on palpation. He has no guarding or rebound tenderness. EXTREMITIES: Starting to show 1+ edema. NEUROLOGIC: He is alert but remains confused which is a little bit worse than his baseline on admission. LABORATORY: White count is showing increased to 14,900 with hemoglobin 10.7, hematocrit 32.8, platelet count 143,000. Differential shows a left shift. Coagulation studies show increasing PT at 16.1, INR 1.62. Chemistries show a hyponatremia at 134 with potassium 3.3 with carbon dioxide 17, anion gap 13, BUN 43, creatinine 1.43 with glucose 86, calcium 11, magnesium 1.9. Total bilirubin has gone up to 3.4, AST increased to 179, ALT has been steady at 45, alkaline phosphatase has decreased to 261. BNP today is 256. Albumin has increased slightly to 2.6. MICROBIOLOGY: Blood cultures remain negative after 3 days. Urine culture showed no growth. RADIOLOGY: Chest x-ray shows bilateral pleural effusions and cardiomegaly are observed suggesting congestive heart failure. The exam again reveals a calcific mass in the right thyroid lobe. ASSESSMENT: 1. Metastatic colon cancer with multiple metastasis to the liver and bone. 2. Early signs of hepatorenal failure with elevated liver enzymes, coagulation studies and worsening renal function, and decreased output probably due to the underlying metastasis to the liver. 3. Urinary tract infection with final urine culture showing no significant growth other than urogenital serjio with the patient remaining on Levaquin and indwelling Carrion. 4. Concern for right lower lobe pneumonia, likely hospital acquired, with the patient showing some slight increase in his white count and showing some low saturations on room air. 5. Increasing leukocytosis probably due to the underlying pneumonia and worsening physiological status due to probable developing hepatorenal failure. 6. Normocytic/normochromic anemia, due to chronic illness and exacerbated by colon cancer. 7. Alzheimer's with dementia with some exacerbation from underlying acute illness as noted above. 8. Persistent metabolic acidosis due to worsening renal and liver functions. 9. Acute kidney failure with some degree of prerenal azotemia from aggressive diuresis. 10. Hypoalbuminemia probably due to poor nutritional intake and underlying metastatic carcinoma of the colon. 11. History of previous transient ischemic attacks in 2007 with no reported residual effects. PLAN: Dr. Lawrence discussed the patient's condition with Jean-Pierre the POJeannette, today. At this point will plan to make a decision in the morning in regards to either discharging the patient back to the skilled nursing on hospice with the issue being whether or not his insurance will pay for both hospice and skilled nursing costs. Dr. Lawrence has deferred any other aggressive management at the request of the family at this point and again it appears the patient is probably developing hepatorenal failure making his prognosis very poor. Will continue to diuresis with Spironolactone in efforts to decrease some of the congestion both in the lungs and ascites. Will provide anti-anxiety medicine as well as Dilaudid for pain control. Again, until the patient can discharge either to hospice or outpatient hospice care, will continue to monitor and treat as needed and follow Dr. Lawrence in the patient's care. [facility][id number] [facility]
[2018-04-06] MEDS ORDERED: SPIRONOLACTONE 25 MG TAB PO SCH (22:00)
[2018-04-06] MEDS ORDERED: SPIRONOLACTONE 25 MG TAB ONE (23:04)
[2018-04-07] MEDS: metroNIDAZOLE IV PREMIX 500MG 500 MG in PREMIX BAG 1 BAG IVPB SCH ×2 (00:34→09:25)
[2018-04-07] MEDS: HYDROmorphone HCL INJ 2 MG/ML VIAL IV PRN (00:39)
[2018-04-07] MEDS: DEX 5% W/NACL 0.22% 1000ML 1,000 ML IVS PRN (02:26)
[2018-04-07] MEDS ORDERED: ASPIRIN (ENTERIC COATED) 81 MG TAB PO ONE (07:24)
[2018-04-07] MEDS ORDERED: metroNIDAZOLE IV PREMIX 500MG 100 ML IVPB ONE (07:24)
[2018-04-07] MEDS ORDERED: SPIRONOLACTONE 25 MG TAB PO SCH (09:00)
[2018-04-07] MEDS: TAMSULOSIN 0.4 MG CAP PO SCH (09:26)
[2018-04-07] MEDS: FINASTERIDE 5 MG TAB PO SCH (09:26)
[2018-04-07] MEDS: ASPIRIN (ENTERIC COATED) 81 MG TAB PO SCH (09:26)
[2018-04-07] MEDS: LOSARTAN POTASSIUM 25 MG TAB PO SCH (09:26)
[2018-04-07] MEDS ORDERED: fentaNYL PATCH 25 MCG/HR 1 EA PATCH TD SCH (10:30)
[2018-04-07] MEDS ORDERED: levoFLOXacin 500 MG TAB PO SCH (10:30)
[2018-04-07] MEDS ORDERED: metroNIDAZOLE 500 MG TAB PO SCH (10:30)
[2018-04-07] MEDS ORDERED: FUROSEMIDE 40 MG TAB PO ONE (10:32)
[2018-04-07 13:29] VITALS: BP 108/73; TEMP 97.9; O2SAT 91
[2018-04-07] MEDS: IV SET AND CAP CHANGE INJ INJ SCH (14:44)
--- NOTE | 2018-04-08 08:38 | DS ---
SUPERVISING PHYSICIAN: Elisa Velasquez MD DISCHARGE DIAGNOSIS: 1. Metastatic colon cancer with multiple metastases to the liver and bone. 2. Early signs of hepatorenal failure with elevated liver enzymes, coagulation studies and worsening renal function and decreased urinary output. 3. Urinary tract infection with final urine culture showing no significant growth. 4. Concern for right lower lobe pneumonia, likely hospital acquired, with the patient showing some slight increase in his white count as well as low saturations on room air. 5. Normocytic/normochromic anemia, due to chronic illness and exacerbated by colon cancer. 6. Alzheimer's dementia. 7. History of previous transient ischemic attacks in 2007 with no reported residual effects. HISTORY OF PRESENT ILLNESS: This is an 82-year-old male patient who was admitted to the hospital from [facility]. He had some complaints of difficulty urinating and was brought to the clinic by his son. The patient has advanced dementia. He was seen in the clinic by Mariola Mike. After discussion with Mariola Mike and Dianne Dominguez with the hospitalist, Frederick Ang, it was felt he had been treated over the weekend with some Rocephin and started on an antibiotic and his urinary tract infection did not clear up. He had a prostate procedure a couple of years ago which the son thought was a TURP for enlarged prostate. Urinalysis in the clinic showed he had 3+ blood and some pyuria. He was also having some significant weight loss and weakness. His weight loss was between 10 and 15 pounds over the previous two weeks. His appetite had also decreased, but he did not have any fever, coughing, nausea or vomiting. He was directly admitted for continuation of workup of possible sepsis secondary to urinary tract infection and severe dehydration. The patient initially was placed in Observation. HOSPITAL COURSE: The patient had significant upper right quadrant pain and was checked for cholecystitis. Dr. Lawrence was consulted. The patient was treated with Levaquin and Flagyl. He also received some fluids and his I&Os were monitored closely. A CT of the chest and abdomen was performed which showed diffuse metastatic disease including hepatic and nancy metastatic disease with likely lytic bone metastasis. Initially it was believed to be secondary to colon cancer. Dr. Cisneros, GI specialist, was also consulted. He did a colonoscopy here at the hospital and the patient was found to have a large mass in the cecum. The mass was biopsied and the biopsy specimen consisted of poorly differentiated epithelial malignancy arising out of the adenomatous colonic mucosa and invading a solid tumor cells meshed with rare gland and tubal formation. These features were most consistent with a diagnosis of poorly differentiated colorectal adenocarcinoma. Dr. Wagner, urologist, was also consulted and after exam felt that the patient would be best benefitted by leaving the Carrion catheter and he felt there would be no necessary treatment for his urinary retention other than keeping his Carrion catheter. His bilirubin was elevated during most of his stay and initially Dr. Lawrence felt we should continue with the antibiotics and due to his poor prognosis, felt that a cholecystectomy would only benefit the patient as comfort measures. The patient had no continued complaints of right upper quadrant pain in spite of his elevated bilirubin. At one point, they had discussed actually placing a drain for comfort measures. Over the next several days, his creatinine worsened to the point today that his creatinine was 1.99 with BUN 50. Liver enzymes consistently increased. He was on clear liquids during most of his stay, so from a nutritional standpoint, his protein stores decreased with a serum total protein being 5.2 today and his albumin is 2.2. It was felt that he was having hepatorenal failure most likely due to his metastatic disease and the family decided he should be discharged to residential facility for completion of his antibiotic therapy as well as pain control. He will be discharged to [facility] today. Dr. Seun Mcelroy is his primary care physician. DISCHARGE PLAN: The patient will be discharged to [facility]. He will be discharged on antibiotics as well as a full liquid diet. He is a DNR with no aggressive treatment. He will be discharged on a fentanyl patch as well as Levaquin 250 mg daily for 7 additional days as well as Flagyl 250 mg b.i.d. for 7 days. He is to followup with Dr. Mcelroy in one to two weeks. DISCHARGE MEDICATIONS: 1. Fentanyl patch. 2. Levaquin. 3. Metronidazole. 4. Acetaminophen suppositories. 5. Zofran ODT. #[id number] MTDD
== END 2018-04-07 16:55 | DRG 374 ==
LOC: MS 11:30
PROVIDERS: ADMIT Nurse Practitioner Family; ATTEND Nurse Practitioner Acute Care
PROC: 0DBH8ZX Excision of Cecum, Via Natural or Artificial Opening Endoscopic, Diagnostic (ICD-10-PCS; principal; 2018-03-31 11:15)
DX: C18.0 Malignant neoplasm of cecum (principal); J18.9 Pneumonia, unspecified organism; C78.7 Secondary malignant neoplasm of liver and intrahepatic bile duct; C79.51 Secondary malignant neoplasm of bone; E87.1 Hypo-osmolality and hyponatremia; N39.0 Urinary tract infection, site not specified; N17.9 Acute kidney failure, unspecified; R18.8 Other ascites; K76.7 Hepatorenal syndrome; E87.2 Acidosis; G30.9 Alzheimer's disease, unspecified; F02.80 Dementia in other diseases classified elsewhere, unspecified severity, without behavioral disturbance, psychotic disturbance, mood disturbance, and anxiety; I10 Essential (primary) hypertension; E86.0 Dehydration; N40.1 Benign prostatic hyperplasia with lower urinary tract symptoms; R33.8 Other retention of urine; K81.9 Cholecystitis, unspecified; D63.0 Anemia in neoplastic disease; K57.30 Diverticulosis of large intestine without perforation or abscess without bleeding; Z86.73 Personal history of transient ischemic attack (TIA), and cerebral infarction without residual deficits; Z66 Do not resuscitate; Y95 Nosocomial condition

== ENCOUNTER 2018-04-08 18:44 | Inpatient (IN) | payer MEDICARE, OTHER ==
[2018-04-08] MEDS ORDERED: SODIUM CHLORIDE 0.9% 1000ML 1,000 ML ONE ×3 (18:53→21:46)
[2018-04-08] MEDS ORDERED: PIPERACILLIN/TAZOBACTAM 3.375 GM in SODIUM CHLORIDE 0.9% 100ML 100 ML IVPB ONE (19:03)
[2018-04-08] MEDS ORDERED: AZTREONAM 1 GM VIAL IM ONE (19:03)
--- NOTE | 2018-04-08 19:08 | ED.PDOC ---
History of Present Illness - General Chief Complaint: Respiratory Problem Time Seen by Provider: 04/08/18 18:55 Source: EMS, [facility] records Exam Limitations: clinical condition - History of Present Illness Initial Comments: Patient presents from [facility] after being found in his room unresponsive. EMS was called. Patient's oxygen saturation was in the 70s and SBP in the 70s. He was recently treated as an inpatient here for pneumonia and discharged two days ago. He was at the [facility] for treatment of his pneumonia and rehab. He has metastatic carcinoma and is currently consulting with Hospice. His son, who is power of claims attorney, is here and expresses his wish for the patient not to be intubated nor for chest compressions or shocks to be administered. No other information is available. Timing/Duration: unsure Severity: severe Improving Factors: nothing Worsening Factors: nothing Associated Symptoms: other - as in HPI Allergies/Adverse Reactions: Allergies NO KNOWN ALLERGY Allergy (Verified 03/30/18 09:01) Home Medications: Ambulatory Orders Acetaminophen [Tylenol Suppository] 650 mg MS Q6H PRN #10 sup 04/07/18 Levofloxacin [Levaquin] 250 mg PO DAILY #7 tablet 04/07/18 Ondansetron [Zofran Odt] 4 mg PO Q4H PRN #15 tab 04/07/18 fentaNYL PATCH 25 MCG/HR [Duragesic Patch 25 MCG/HR] 1 ea TD Q72H patch 04/07/18 metroNIDAZOLE [Flagyl] 250 mg PO Q12H #14 tab 04/07/18 Review of Systems - Review of Systems Unable to Obtain Due To: condition, clinical condition Past Medical History (General) - Patient Medical History Hx Seizures: No Hx Stroke: Yes - Small strokes approximately 8-10 years ago per son. Hx Dementia: No Hx Asthma: No Hx of COPD: No Hx Cardiac Disorders: No Hx Congestive Heart Failure: No Hx Pacemaker: No Hx Hypertension: Yes Hx Thyroid Disease: No Hx Diabetes: No Hx Gastroesophageal Reflux: No Hx Renal Disease: No Hx Cancer: No Hx of HIV: No Hx Hepatitis C: No Hx MRSA: No - Vaccination History Hx Tetanus, Diphtheria Vaccination: No Hx Pneumococcal Vaccination: No - Social History Hx Tobacco Use: No Hx Alcohol Use: No Hx Substance Use: No Hx Substance Use Treatment: No Hx Depression: No Hx Physical Abuse: No Hx Emotional Abuse: No Hx Suspected Abuse: No Family Medical History - Family History Mother Family History: Unknown Physical Exam - Physical Exam General Appearance: Other - unresponsive Eye Exam: bilateral other - sluggish Ears, Nose, Throat: normal ENT inspection Neck: other - trachea midline Respiratory: other - distant breath sounds, rhonchi and rales in right lung guerra Cardiovascular/Chest: tachycardia Gastrointestinal/Abdominal: normal bowel sounds Extremity: other - unable to asses Neurologic: other - corneal and pupillar reflexes sluggish, patient does not withdraw to pain Skin Exam: normal color, mottled Lymphatic: no adenopathy Progress - Progress Progress: 04/08/18 19:50 Laboratory Tests 04/08/18 04/08/18 04/08/18 18:56 18:56 18:56 WBC 21.1 H* D RBC 3.70 L Hgb 11.3 L Hct 34.0 L MCV 91.9 MCH 30.5 MCHC 33.1 RDW 16.9 H Plt Count 235 MPV 9.1 Absolute Neuts (auto) Not Reportable Absolute Lymphs (auto) Not Reportable Absolute Monos (auto) Not Reportable Absolute Eos (auto) Not Reportable Absolute Basos (auto) Not Reportable Neutrophils % Not Reportable Neutrophils % (Manual) 75.0 Lymphocytes % Not Reportable Lymphocytes % (Manual) 11.0 Monocytes % Not Reportable Monocytes % (Manual) 5.0 Eosinophils % Not Reportable Basophils % Not Reportable Band Neutrophils 8.0 H Eosinophils 1.0 Basophils Metamyelocytes Myelocytes Promyelocytes Nucleated RBCs Differential Comment Hypersegmented Polys Blast Cells Plasma Cells Other Cell Type Hypochromia 1+ Toxic Granulation Dohle Bodies Onel Rods Platelet Estimate Normal Normal RBC Morphology Polychromasia Poikilocytosis 2+ Basophilic Stippling Anisocytosis 2+ Microcytosis Macrocytosis Spherocytes Sickle Cells Target Cells Ovalocytes Stomatocytes Helmet Cells [place] Bodies [place] Rings Rillito Cells Acanthocytes (Spur) Rouleaux Schistocytes RBC Morph Comment PUBS Tear Drop Cells pCO2 21 L pO2 78 L HCO3 12.3 ABG pH 7.380 ABG O2 Saturation 96.2 ABG Base Excess -11.1 ABG Deoxyhemoglobin 3.7 Oxyhemoglobin % 93.9 L Carboxyhemoglobin % 0.2 L Methemoglobin % Sat 2.2 H Calc Total Hemoglobin 10.4 L Sodium 132 L Potassium 4.8 Chloride 107 Carbon Dioxide 15 L Anion Gap 14.8 BUN 72 H D Creatinine 3.38 H D BUN/Creatinine Ratio 21.3 H Random Glucose 69 L Serum Osmolality 284.1 Lactic Acid Calcium 11.3 H Total Bilirubin 7.0 H* D AST 206 H ALT 56 Alkaline Phosphatase 278 H Serum Total Protein 5.5 L Albumin 2.1 L Globulin 3.4 Albumin/Globulin Ratio 0.6 L 04/08/18 04/08/18 18:56 19:11 WBC RBC Hgb Hct MCV MCH MCHC RDW Plt Count MPV Absolute Neuts (auto) Absolute Lymphs (auto) Absolute Monos (auto) Absolute Eos (auto) Absolute Basos (auto) Neutrophils % Neutrophils % (Manual) Cancelled Lymphocytes % Lymphocytes % (Manual) Cancelled Monocytes % Monocytes % (Manual) Cancelled Eosinophils % Basophils % Band Neutrophils Cancelled Eosinophils Cancelled Basophils Cancelled Metamyelocytes Cancelled Myelocytes Cancelled Promyelocytes Cancelled Nucleated RBCs Cancelled Differential Comment Cancelled Hypersegmented Polys Cancelled Blast Cells Cancelled Plasma Cells Cancelled Other Cell Type Cancelled Hypochromia Cancelled Toxic Granulation Cancelled Dohle Bodies Cancelled Onel Rods Cancelled Platelet Estimate Cancelled Normal RBC Morphology Cancelled Polychromasia Cancelled Poikilocytosis Cancelled Basophilic Stippling Cancelled Anisocytosis Cancelled Microcytosis Cancelled Macrocytosis Cancelled Spherocytes Cancelled Sickle Cells Cancelled Target Cells Cancelled Ovalocytes Cancelled Stomatocytes Cancelled Helmet Cells Cancelled [place] Bodies Cancelled [place] Rings Cancelled Molly Cells Cancelled Acanthocytes (Spur) Cancelled Rouleaux Cancelled Schistocytes Cancelled RBC Morph Comment Cancelled PUBS Tear Drop Cells Cancelled pCO2 pO2 HCO3 ABG pH ABG O2 Saturation ABG Base Excess ABG Deoxyhemoglobin Oxyhemoglobin % Carboxyhemoglobin % Methemoglobin % Sat Calc Total Hemoglobin Sodium Potassium Chloride Carbon Dioxide Anion Gap BUN Creatinine BUN/Creatinine Ratio Random Glucose Serum Osmolality Lactic Acid 3.7 H* Calcium Total Bilirubin AST ALT Alkaline Phosphatase Serum Total Protein Albumin Globulin Albumin/Globulin Ratio wbc 21.1. CXR shows worsening right sided pneumonia. Patient was placed on BIPAP and received 2 L NS bolus in the E.D. Dr. Mcelroy came to speak with the family. The family, including the POA, decided not to have antibiotics administered. The patient was admitted to the floor for palliative care. He was kept on oxygen in the E.D. 04/08/18 19:52 Departure - Departure Clinical Impression: Respiratory distress, Palliative care patient Disposition: Admit Patient Condition: Serious Departure Forms: ED Discharge - Pt. Copy, Patient Portal Self Enrollment Diet: other - as per hospitalist Activity: other - as per hospitalist Referrals: Seun Mcelroy MD [Primary Care Provider] - 1-2 Weeks Home Medications: Ambulatory Orders Acetaminophen [Tylenol Suppository] 650 mg MS Q6H PRN #10 sup 04/07/18 Levofloxacin [Levaquin] 250 mg PO DAILY #7 tablet 04/07/18 Ondansetron [Zofran Odt] 4 mg PO Q4H PRN #15 tab 04/07/18 fentaNYL PATCH 25 MCG/HR [Duragesic Patch 25 MCG/HR] 1 ea TD Q72H patch 04/07/18 metroNIDAZOLE [Flagyl] 250 mg PO Q12H #14 tab 04/07/18
--- NOTE | 2018-04-08 19:14 | RAD ---
EXAM DESCRIPTION: Chest,1 View CLINICAL HISTORY: cough, low O2 sats COMPARISON: Chest radiograph dated April 06, 2018 CT chest dated March 29, 2018 TECHNIQUE: Single supine portable frontal view of chest FINDINGS: Redemonstration of calcified mass in the right thyroid lobe. Calcific atherosclerosis of the aortic arch. Cardiac silhouette shows upper limits of normal heart size. Pulmonary vascularity is within normal limits. Blunting of the bilateral costophrenic angles, compatible with small to moderate right-sided pleural effusion and small left-sided pleural effusion, increased compared to April 06, 2018. Opacities in the bilateral lower lung zones most likely represent compressive atelectasis from adjacent pleural effusions. There is no pneumothorax. No acute osseous abnormality. IMPRESSION: 1. Small to moderate right-sided pleural effusion and small left-sided pleural effusion, increased compared to April 06, 2018. 2. Opacities in the bilateral lower lung zones most likely represent compressive atelectasis from adjacent pleural effusions. Underlying infiltrate cannot be excluded. Electronically signed by: Baldemar Morales MD 04/08/2018 7:13 PM [facility]
[2018-04-08] MEDS ORDERED: SODIUM CHLORIDE 0.9% 100ML 100 ML IVPB ONE ×2 (19:15→19:19)
[2018-04-08] MEDS ORDERED: PIPERACILLIN/TAZOBACTAM 3.375 GM VIAL IVPB ONE (19:15)
--- NOTE | 2018-04-08 20:48 | HP ---
SUPERVISING PHYSICIAN: Roayl Velasquez MD CHIEF COMPLAINT: Shortness of breath. HISTORY OF PRESENT ILLNESS: This is an 82 year-old male patient who was discharged from the hospital yesterday after an extensive hospitalization that initially had been admitted for difficulty urinating as well as possible cholecystitis. He was discharged yesterday to [facility]. During his workup for possible cholecystitis, he was found to have metastatic colon cancer with multiple metastases to the liver and bone. He also was in hepatorenal failure whet he left and the patient was a DNR. Initially he was sent to the custodial for nursing care as well as pain control. EMS was called to the custodial when his oxygen saturations were in the 70s and his systolic blood pressure was in the 70s. He was also being treated at the custodial for cholecystitis with antibiotic treatment.of Levaquin and Flagyl. The family discussed with [facility] that they wanted inpatient hospice. Dr. Mcelroy, medical social worker for [facility], saw the patient and [facility] accepted him as a patient and he will be admitted to the hospital for hospice care due to metastatic colon cancer. PAST MEDICAL HISTORY: 1. Carotid artery stenosis. 2. Hypertension. 3. Benign prostatic hypertrophy. 4. Alzheimer's disease. PAST SURGICAL HISTORY: 1. Transurethral resection of the prostate. CURRENT MEDICATIONS: 1. Tylenol suppositories. 2. Fentanyl patch. 3. Zofran ODT. 4. Flagyl. 5. Levaquin. ALLERGIES: NO KNOWN DRUG ALLERGIES. FAMILY HISTORY: Noncontributory. . 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 He is . He has recently been a resident of [facility]. There is no history of tobacco or illicit drug use but he did drink alcohol in the past. REVIEW OF SYSTEMS: Unable to perform due to patient's mental status. PHYSICAL EXAMINATION: VITAL SIGNS: Temperature 102.3, heart rate 66 but was as high as 115, blood pressure 79/45. Respirations 20, 02 saturation 95%. He is on a BiPAP machine. . GENERAL: This is a thin, lethargic and frail 82 year-old male who is lying in his hospital bed. HEENT: Oropharynx pink but somewhat dry. . NECK: Supple without mass. . CHEST: Diminished breath sounds throughout with rhonchi and rales throughout all lung guerra.. CARDIOVASCULAR: Regular rate and rhythm. At times he is thought to be tachycardiac. ABDOMEN: Soft, nondistended. Bowel sounds are positive. NEUROLOGIC: He is obtunded. He does not withdraw to pain. ASSESSMENT: 1. Metastatic colon cancer with multiple metastases to the liver and the bone. 2. Hepatorenal failure with elevated liver enzymes on coagulation studies and worsening renal function per the EMR from his return hospitalization. 4. Cholecystitis that was recently treated with Flagyl and Levaquin. PLAN: We will admit the patient on [facility]. They will be responsible for his care but I will be available for any issues or medication changes. We will continue to follow the patient and treat as needed. #[id number] [facility]
[2018-04-08] MEDS ORDERED: SODIUM CHLORIDE 0.9% (FLUSH) 10 ML SYG IV PRN (21:56)
[2018-04-08] MEDS ORDERED: SODIUM CHLORIDE 0.9% 1000ML 1,000 ML IVS PRN (21:59)
[2018-04-08] MEDS ORDERED: fentaNYL PATCH 25 MCG/HR 1 EA PATCH TD SCH (22:00)
[2018-04-08] MEDS ORDERED: IV SET AND CAP CHANGE INJ INJ SCH (22:00)
[2018-04-08] MEDS ORDERED: SCOPOLAMINE PATCH 1.5MG 1 EA TD PRN (22:05)
[2018-04-09] MEDS: MORPHINE SULFATE INJ 10 MG/ML VIAL IV PRN (07:32)
[2018-04-09] MEDS: SODIUM CHLORIDE 0.9% (FLUSH) 10 ML SYG IV SCH ×2 (09:50→20:53)
[2018-04-09 16:12] VITALS: O2SAT 87
[2018-04-09 22:22] VITALS: BP 95/62; TEMP 99.5
[2018-04-10] MEDS: SODIUM CHLORIDE 0.9% (FLUSH) 10 ML SYG IV SCH (08:29)
[2018-04-10] MEDS: MORPHINE SULFATE INJ 10 MG/ML VIAL IV PRN (08:37)
--- NOTE | 2018-04-11 15:37 | DS ---
SUPERVISING PHYSICIAN: Royal Velasquez MD DISCHARGE DIAGNOSES: . HISTORY OF PRESENT ILLNESS: This is an 82 year-old male patient who was discharged from the hospital yesterday after an extensive hospitalization that initially had been admitted for difficulty urinating as well as possible cholecystitis. He was discharged yesterday to [facility]. During his workup for possible cholecystitis, he was found to have metastatic colon cancer with multiple metastases to the liver and bone. He also was in hepatorenal failure whet he left and the patient was a DNR. Initially he was sent to the assisted for nursing care as well as pain control. EMS was called to the assisted when his oxygen saturations were in the 70s and his systolic blood pressure was in the 70s. He was also being treated at the assisted for cholecystitis with antibiotic treatment.of Brandi and aYs. The family discussed with [facility] that they wanted inpatient hospice. Dr. Mcelroy, medical laboratory scientist for [facility], saw the patient and [facility] accepted him as a patient and he will be admitted to the hospital for hospice care due to metastatic colon cancer. HOSPITAL COURSE: The patient was followed by [facility] with their routine orders. The patient at 9:15 on 04/10/2018. [facility] nurse pronounced the patient at the bedside. DISCHARGE PLAN: The patient will be discharged from the hospital due to . He will be transported to the home as per the family's wishes. DISCHARGE MEDICATIONS: None. #[id number] MTDD
[2018-04-11] MEDS ORDERED: REMOVE OLD PATCH TOP SCH (22:00)
== END 2018-04-10 10:42 | disposition expired | DRG 951 ==
LOC: ER 18:44 → MS 20:45
PROVIDERS: ADMIT Nurse Practitioner Acute Care; ATTEND Nurse Practitioner Acute Care
DX: Z51.5 Encounter for palliative care (principal); C18.9 Malignant neoplasm of colon, unspecified; C78.7 Secondary malignant neoplasm of liver and intrahepatic bile duct; C79.51 Secondary malignant neoplasm of bone; K76.7 Hepatorenal syndrome; I10 Essential (primary) hypertension; N40.0 Benign prostatic hyperplasia without lower urinary tract symptoms; G30.9 Alzheimer's disease, unspecified; F02.80 Dementia in other diseases classified elsewhere, unspecified severity, without behavioral disturbance, psychotic disturbance, mood disturbance, and anxiety; I65.29 Occlusion and stenosis of unspecified carotid artery; K81.9 Cholecystitis, unspecified; Z66 Do not resuscitate; Z86.73 Personal history of transient ischemic attack (TIA), and cerebral infarction without residual deficits